=== PATIENT | male | born 1985 | race Caucasian/White ===

== ENCOUNTER 2017-03-23 11:15 | Emergency (ER) | payer MEDICARE, OTHER ==
[~2017-03-23 11:15] MED LIST: BUPR-86 PO; LITH600C PO; PALI234P IM; PROP20TA3 PO; ROZE8TAB19 PO
[2017-03-23 11:18] VITALS: BP 145/77; PULSE 83; RESP 12; TEMP 98.2; O2SAT 97
--- NOTE | 2017-03-23 12:40 | RADRPT ---
EXAM DATE/TIME: 03/23/2017 12:17 [place] COMPARISON: No previous studies available for comparison. INDICATIONS : Trauma FINDINGS: Three view exam was performed of the left ankle. The bony structures are in normal alignment. No ev idence of fracture, dislocation, or soft tissue swelling. The ankle mortise is intact. No radiopaqu e foreign bodies are seen. Bony mineralization is normal. CONCLUSION: 1. No acute fracture or dislocation. Josh Hebert MD on March 23, 2017 at 12:37 Board Certified Radiologist. This report was verified electronically.
[2017-03-23] MEDS ORDERED: IBUP1TAB7 PO (12:48)
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
[2017-03-23] MEDS ORDERED: IBUPROFEN 800 MG TAB PO ONE (13:00)
== END 2017-03-23 13:24 | disposition home or self-care (01) ==
LOC: NEPK 11:15
DX: S99.912A Unspecified injury of left ankle, initial encounter (principal); X50.1XXA Overexertion from prolonged static or awkward postures, initial encounter; Y93.39 Activity, other involving climbing, rappelling and jumping off
CPT/HCPCS: 73610; 99283; E0113; L1906

== ENCOUNTER 2017-08-16 11:52 | Emergency (ER) | payer MEDICARE, MEDICAID ==
[~2017-08-16] VITALS: Ht 165.1 cm; Wt 110.0 kg
[~2017-08-16 11:52] MED LIST changes: +IBUP1TAB7 PO
[2017-08-16 11:59] VITALS: BP 141/76; PULSE 91; RESP 16; TEMP 98; O2SAT 98
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
[2017-08-16] MEDS ORDERED: TRAZ100T10 PO (12:47)
== END 2017-08-16 13:10 | disposition home or self-care (01) ==
LOC: NEPD 11:52
DX: F51.05 Insomnia due to other mental disorder (principal); F41.9 Anxiety disorder, unspecified; F20.9 Schizophrenia, unspecified; F31.9 Bipolar disorder, unspecified
CPT/HCPCS: 99281

== ENCOUNTER 2017-09-14 18:11 | Inpatient (IN) | payer OTHER, MEDICARE ==
[~2017-09-14] VITALS: Ht 165.1 cm; Wt 109.2 kg
[~2017-09-14 18:11] MED LIST changes: +TRAZ100T10 PO
[2017-09-14 18:15] VITALS: BP 156/79; PULSE 105; RESP 20; TEMP 98.5; O2SAT 99
[2017-09-14] MEDS ORDERED: PALI1TAB4 PO (18:34)
[2017-09-14] MEDS ORDERED: DOXE100C4 PO (18:34)
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
[2017-09-14 20:51] VITALS: BP 139/81; PULSE 90; RESP 18; TEMP 98.5; O2SAT 100
[2017-09-14 21:15] LABS: BICARBONATE 19.7 MEQ/L (21.0-32.0); BLOOD UREA NITROGEN 11 MG/DL (7-18); CALCIUM 9.1 MG/DL (8.5-10.1); CHLORIDE 107 MEQ/L (98-107); CREATININE 0.97 MG/DL (0.60-1.30); GLOMERULAR FILTRATION RATE 91 ML/MIN (>89); GLUCOSE,RANDOM 77 MG/DL (74-106); SODIUM (NA) 137 MEQ/L (136-145)
[2017-09-14 21:57] LABS: AUTOMATED NEUTROPHIL # 9.9 TH/MM3 (1.8-7.7); BASOPHIL # 0.1 TH/MM3 (0-0.2); BASOPHIL % 0.4 % (0.0-2.0); EOSINOPHIL # 0.1 TH/MM3 (0-0.4); EOSINOPHIL % 0.5 % (0.0-4.0); HEMATOCRIT 40.4 % (39.0-51.0); HEMOGLOBIN 13.6 GM/DL (13.0-17.0); LYMPH % 19.8 % (9.0-44.0); LYMPHOCYTE # 2.7 TH/MM3 (1.0-4.8); MEAN CELL VOLUME 84.4 FL (80.0-100.0); MEAN CORPUSCULAR HEMOGLOBIN 28.4 PG (27.0-34.0); MEAN CORPUSCULAR HGB CONC 33.7 % (32.0-36.0); MONO % 5.8 % (0.0-8.0); MONOCYTE # 0.8 TH/MM3 (0-0.9); NEUT % 73.5 % (16.0-70.0); PLATELET COUNT 293 TH/MM3 (150-450); RED BLOOD COUNT 4.79 MIL/MM3 (4.50-5.90); RED CELL DISTRIBUTION WIDTH 13.5 % (11.6-17.2); WHITE BLOOD COUNT 13.5 TH/MM3 (4.0-11.0)
[2017-09-15 00:29] VITALS: BP 169/83; PULSE 98; RESP 18; TEMP 98.6; O2SAT 100
[2017-09-15] MEDS ORDERED: diphenhydrAMINE HCL 50 MG/ML VIAL IM ONE (06:45)
[2017-09-15] MEDS ORDERED: HALOPERIDOL LACTATE 5 MG/ML AMP IM ONE ×2 (06:45→18:15)
[2017-09-15] MEDS ORDERED: LORazepam 2 MG/ML VIAL IM ONE ×2 (06:45→18:15)
[2017-09-15] MEDS ORDERED: ALUMINUM/MAGNESIUM/SIMETH 30 ML CUP PO PRN (07:15)
[2017-09-15] MEDS ORDERED: ACETAMINOPHEN 325 MG TAB PO PRN (07:15)
[2017-09-15] MEDS ORDERED: LORazepam 0.5 MG TAB PO PRN (07:15)
[2017-09-15] MEDS ORDERED: LORazepam 1 MG TAB PO PRN (07:15)
[2017-09-15] MEDS ORDERED: LORazepam 2 MG/ML VIAL IM PRN ×2 (07:15)
[2017-09-15] MEDS ORDERED: MAGNESIUM HYDROXIDE SUSP 30 ML CUP PO PRN (07:15)
[2017-09-15] MEDS: LITHIUM CARBONATE 300 MG CAP PO SCH ×2 (09:00→21:00)
[2017-09-15] MEDS ORDERED: PALIPERIDONE ER 9 MG TAB PO SCH (09:00)
[2017-09-15] MEDS: PROPRANOLOL HCL 20 MG TAB PO SCH ×2 (09:00→21:18)
[2017-09-15] MEDS ORDERED: NICOTINE 21 MG/24 HR PATCH T-DERMAL SCH (09:00)
[2017-09-15 13:22] VITALS: BP 132/73; PULSE 98; RESP 18; TEMP 97.6; O2SAT 98
[2017-09-15] MEDS ORDERED: HALOPERIDOL LACTATE 5 MG/ML AMP ONE (18:07)
[2017-09-15] MEDS ORDERED: DOXEPIN HCL 50 MG CAP PO SCH (21:00)
[2017-09-15] MEDS ORDERED: traZODone HCL 100 MG TAB PO SCH (21:00)
[2017-09-15] MEDS ORDERED: HALOPERIDOL 5 MG TAB PO ONE (23:45)
[2017-09-15] MEDS ORDERED: diphenhydrAMINE HCL 50 MG CAP PO ONE (23:45)
[2017-09-15] MEDS ORDERED: LORazepam 2 MG TAB PO ONE (23:45)
[2017-09-16 06:16] VITALS: BP 124/74; PULSE 83; RESP 18; TEMP 97.4; O2SAT 100
[2017-09-16 08:45] LABS: BLOOD UREA NITROGEN 9 MG/DL (7-18); CALCIUM 9.1 MG/DL (8.5-10.1); CHLORIDE 105 MEQ/L (98-107); CHOLESTEROL 171 MG/DL (120-200); CREATININE 1.01 MG/DL (0.60-1.30); GLOMERULAR FILTRATION RATE 87 ML/MIN (>89); GLUCOSE,RANDOM 108 MG/DL (74-106); SODIUM (NA) 138 MEQ/L (136-145)
[2017-09-16 08:47] LABS: HDL CHOLESTEROL 25.5 MG/DL (40.0-60.0); LDL CHOLESTEROL 126 MG/DL (0-99); TRIGLYCERIDES 97 MG/DL (42-150)
[2017-09-16] MEDS ORDERED: PALIPERIDONE ER 3 MG TAB PO SCH (09:00)
[2017-09-16] MEDS: PROPRANOLOL HCL 20 MG TAB PO SCH ×2 (09:00→21:19)
[2017-09-16] MEDS: LITHIUM CARBONATE 300 MG CAP PO SCH ×2 (09:00→21:18)
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
[2017-09-16 10:39] LABS: HEMOGLOBIN A1C 4.6 % (4.3-6.0)
[2017-09-16] MEDS ORDERED: BENZTROPINE MESYLATE 2 MG/2 ML VIAL IM PRN (12:15)
[2017-09-16] MEDS ORDERED: BENZTROPINE MESYLATE 1 MG TAB PO PRN (12:15)
[2017-09-16 15:10] VITALS: BP 125/60; PULSE 79; RESP 18; TEMP 98.7; O2SAT 98
[2017-09-16] MEDS: traZODone HCL 100 MG TAB PO PRN (19:54)
--- NOTE | 2017-09-16 20:17 | EKG ---
Date Performed: 09/16/2017 Time Performed: 12:58:14 PTAGE: 32 years EKG: Sinus rhythm NORMAL ECG NO PREVIOUS TRACING DOCTOR: Amauri Bolton Interpretating Date/Time 09/16/2017 20:16:07
[2017-09-16] MEDS: DOCUSATE SODIUM 100 MG CAP PO SCH (21:17)
[2017-09-16] MEDS: PALIPERIDONE ER 3 MG TAB PO SCH (21:19)
[2017-09-17] MEDS: hydrOXYzine HCL 50 MG TAB PO PRN (01:01)
[2017-09-17 05:55] VITALS: BP 127/64; PULSE 72; RESP 18; TEMP 97.7; O2SAT 98
[2017-09-17 06:10] VITALS: BP 127/64; PULSE 72; RESP 18; TEMP 97.7; O2SAT 98
[2017-09-17] MEDS: PROPRANOLOL HCL 20 MG TAB PO SCH ×2 (08:00→20:29)
[2017-09-17] MEDS: DOCUSATE SODIUM 100 MG CAP PO SCH ×2 (08:00→20:26)
[2017-09-17] MEDS: LITHIUM CARBONATE 300 MG CAP PO SCH ×2 (08:01→20:27)
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
[2017-09-17] MEDS: BISACODYL EC 5 MG TABEC PO PRN (12:16)
--- NOTE | 2017-09-17 12:26 | HHI.PYPN ---
Subjective Chief Complaint: Psychosis Remarks Patient seen and examined with nurse. Chart reviewed. Case discussed with nursing staff. Patient noted to have slept 4 hours. Case discussed in treatment team. Occupational therapist notes patient was carrying around the cover of a bible and told therapist that he thought it was covered in blood. On my evaluation, patient remains quite childlike and interpersonally odd. He approaches me initially during fresh air time to ask about discharge. When I ask him about this during the interview, he tells me that he needs to attend a convention but then says that this is scheduled for next month. He makes odd statements about not "put[ting] the right lock on the door." He denies SI or HI. Denies AVH. Denies side effects from medications. No physical complaints. Review of Systems ROS Limitations: Poor Historian Except as stated in HPI: all other systems reviewed are Neg Mental Status Examination Appearance: Appropriate Consciousness: Alert Orientation: x4 Motor Activity: Normal gait, Other (No motor abnormalities noted) Speech: Unremarkable Language: Adequate Fund of Knowledge: Adequate (Fair) Attention and Concentration: Other (Fair) Mood: Other ("Pretty good") Affect: Appropriate (Remain somewhat childlike) Thought Process & Associations: Intact, Logical Thought Content: Bizarre thinking, Hallucinations Hallucination Type: None Delusion Type: None Suicidal Ideation: No Suicidal Plan: No Suicidal Intention: No Homicidal Ideation: No Homicidal Plan: No Homicidal Intention: No Insight: Fair Judgment: Impulsive Results Labs Labs reviewed. EKG reviewed. Vitals/IOs Vital Signs Date Time Temp Pulse Resp B/P (MAP) Pulse Ox O2 Delivery O2 Flow Rate FiO2 09/17/17 06:10 97.7 72 18 127/64 (85) 98 09/15/17 00:29 Room Air Assessment & Plan Problem List: (1) Other schizoaffective disorders ICD Codes: F25.8 - Other schizoaffective disorders Assessment & Plan I continue to wonder about some degree of intellectual disability or developmental disorder. Continue increased dose of Invega as ordered. Continue lithium as ordered and plan to obtain a level later in the week. Continue to monitor on the inpatient unit. Continue other medications and care as ordered. Justification for Cont. Inpt. Risk for decompensation in less restrictive environment Discharge Planning Pending psychiatric stabilization Request HC Surrog/Guard Advoc?: No Jono Osborn MD September 17, 2017 12:26
[2017-09-17 18:05] VITALS: BP 128/79; PULSE 86; RESP 18; TEMP 97.5; O2SAT 100
[2017-09-17] MEDS: PALIPERIDONE ER 3 MG TAB PO SCH (20:27)
[2017-09-18 06:09] VITALS: BP 141/67; PULSE 88; RESP 18; TEMP 97.6; O2SAT 97
[2017-09-18] MEDS: PROPRANOLOL HCL 20 MG TAB PO SCH ×2 (08:10→20:10)
[2017-09-18] MEDS: DOCUSATE SODIUM 100 MG CAP PO SCH ×2 (08:10→20:09)
[2017-09-18] MEDS: LITHIUM CARBONATE 300 MG CAP PO SCH ×2 (08:11→20:09)
[2017-09-18] MEDS: BISACODYL EC 5 MG TABEC PO PRN (08:11)
--- NOTE | 2017-09-18 13:34 | HHI.PYPN ---
Subjective Chief Complaint: Psychosis Remarks Patient seen and examined with counselor and nurse. Chart reviewed. Case discussed with nursing staff who reports the patient is somewhat fixated on his bowels and displayed some irritability yesterday associated with the bathroom. Case discussed in treatment team. On my examination today, the patient denies any SI or HI. He denies any AVH but appears a little internally preoccupied. Some ongoing paranoia. No side effects from medications. No physical complaints. Review of Systems ROS Limitations: Psychotic Except as stated in HPI: all other systems reviewed are Neg Mental Status Examination Appearance: Appropriate Consciousness: Alert Orientation: x4 Motor Activity: Normal gait, Other (No motoric abnormalities noted) Speech: Unremarkable Language: Adequate Fund of Knowledge: Adequate Attention and Concentration: Other (Fair) Mood: Other (Calm) Affect: Appropriate (Somewhat child like) Thought Process & Associations: Intact, Logical Thought Content: Bizarre thinking Hallucination Type: None Delusion Type: Paranoid Suicidal Ideation: No Suicidal Plan: No Suicidal Intention: No Homicidal Ideation: No Homicidal Plan: No Homicidal Intention: No Insight: Fair Judgment: Impulsive Results Labs Labs reviewed Vitals/IOs Vital Signs Date Time Temp Pulse Resp B/P (MAP) Pulse Ox O2 Delivery O2 Flow Rate FiO2 09/18/17 06:09 97.6 88 18 141/67 (91) 97 09/15/17 00:29 Room Air Assessment & Plan Problem List: (1) Other schizoaffective disorders ICD Codes: F25.8 - Other schizoaffective disorders Assessment & Plan Discussed with patient options for management of ongoing psychotic symptoms. After discussion of R/P/A, we settle on addition of Thorazine to existing regimen. Start Thorazine 50 mg at bedtime. Continue other psychotropics as ordered. Obtain a lithium level tomorrow morning. Counselor to obtain collateral information. Continue to monitor on the inpatient unit. Continue other medications and care as ordered. Justification for Cont. Inpt. Med changes. Impairment in reality construction. Risk for decompensation in less restrictive environment. Discharge Planning Pending psychiatric stabilization. Request HC Surrog/Guard Advoc?: No Jono Osborn MD September 18, 2017 13:34
[2017-09-18 17:06] VITALS: BP 144/76; PULSE 89; RESP 18; TEMP 97.3; O2SAT 99
[2017-09-18] MEDS: PALIPERIDONE ER 3 MG TAB PO SCH (20:10)
[2017-09-18] MEDS: traZODone HCL 100 MG TAB PO PRN (21:16)
[2017-09-19 06:05] VITALS: BP 139/73; PULSE 79; RESP 16; TEMP 97.7; O2SAT 99
[2017-09-19 06:55] LABS: BICARBONATE 28.3 MEQ/L (21.0-32.0); CALCIUM 9.7 MG/DL (8.5-10.1); CREATININE 1.07 MG/DL (0.60-1.30)
[2017-09-19] MEDS: PROPRANOLOL HCL 20 MG TAB PO SCH ×2 (08:46→21:12)
[2017-09-19] MEDS: DOCUSATE SODIUM 100 MG CAP PO SCH ×2 (08:46→21:12)
[2017-09-19] MEDS: LITHIUM CARBONATE 300 MG CAP PO SCH ×2 (08:47→21:12)
--- NOTE | 2017-09-19 11:26 | HHI.PYPN ---
Subjective Chief Complaint: Psychosis Remarks Patient seen and examined with nurse. Chart reviewed. Case discussed with nursing staff. On my examination today, the patient presents as fairly appropriate in conversation. Mild episcopalian preoccupation noted. He denies AVH. No preoccupation with bowels or bathroom today. No SI or HI. No side effects from medications. No physical complaints. Agreeable to starting Invega Sustenna and to titration of Thorazine to target residual symptoms. Education provided regarding Sustenna dosing schedule. Review of Systems Except as stated in HPI: all other systems reviewed are Neg Mental Status Examination Appearance: Appropriate Consciousness: Alert Orientation: x4 Motor Activity: Normal gait, Other (No abnormal motor movements noted. No hand tremor, no dystonia, no dyskinesia.) Speech: Unremarkable Language: Adequate Fund of Knowledge: Adequate Attention and Concentration: Adequate Memory: Unremarkable (Grossly intact on clinical exam) Mood: Other (Remains calm) Affect: Appropriate (Somewhat childlike) Thought Process & Associations: Intact, Logical Thought Content: Appropriate Hallucination Type: None Delusion Type: Paranoid (Mild) Suicidal Ideation: No Suicidal Plan: No Suicidal Intention: No Homicidal Ideation: No Homicidal Plan: No Homicidal Intention: No Insight: Fair Judgment: Impulsive Results Labs Test 09/19/17 05:58 Blood Urea Nitrogen 7 MG/DL Creatinine 1.07 MG/DL Random Glucose 100 MG/DL Calcium Level 9.7 MG/DL Sodium Level 142 MEQ/L Potassium Level 3.7 MEQ/L Chloride Level 106 MEQ/L Carbon Dioxide Level 28.3 MEQ/L Anion Gap 8 MEQ/L Estimat Glomerular Filtration Rate 81 ML/MIN Kenvir Level 0.7 MEQ/L Labs reviewed. Kenvir level within therapeutic range for maintenance treatment , and patient is not experiencing significant affective symptoms presently. Vitals/IOs Vital Signs Date Time Temp Pulse Resp B/P (MAP) Pulse Ox O2 Delivery O2 Flow Rate FiO2 09/19/17 06:05 97.7 79 16 139/73 (95) 99 Assessment & Plan Problem List: (1) Other schizoaffective disorders ICD Codes: F25.8 - Other schizoaffective disorders Assessment & Plan Titrate Thorazine to 100 mg at bedtime. Initiate Invega Sustenna 234 mg IM today with plan for booster dose in 4-7 days. Plan for fairly rapid discontinuation of oral Invega as oral supplementation is not required with this agent. Continue to monitor on the inpatient unit. Continue other medications and care as ordered. Justification for Cont. Inpt. Med changes. Discharge Planning Possible discharge tomorrow or perhaps Saturday. Request HC Surrog/Guard Advoc?: No Jono Osborn MD September 19, 2017 11:26
[2017-09-19] MEDS ORDERED: PALIPERIDONE PALMITATE 234 MG/1.5 ML SYRINGE IM ONE (11:30)
[2017-09-19 18:00] VITALS: BP 127/58; PULSE 69; RESP 18; TEMP 98.3; O2SAT 97
[2017-09-19] MEDS: PALIPERIDONE ER 3 MG TAB PO SCH (21:14)
[2017-09-20 05:54] VITALS: BP 105/63; PULSE 73; RESP 16; TEMP 96.7; O2SAT 97
[2017-09-20] MEDS: PROPRANOLOL HCL 20 MG TAB PO SCH (09:04)
[2017-09-20] MEDS: LITHIUM CARBONATE 300 MG CAP PO SCH ×2 (09:04→20:38)
[2017-09-20] MEDS: DOCUSATE SODIUM 100 MG CAP PO SCH ×2 (09:04→20:38)
--- NOTE | 2017-09-20 16:12 | HHI.PYPN ---
Subjective Chief Complaint: Psychosis Remarks Patient seen and examined. Chart reviewed. Patient received Invega Sustenna yesterday and is tolerating this well without ill effects. Case discussed with nursing staff. Case discussed with counselor who has been in contact with patient's mother who thinks that the patient is improving but would benefit from additional stabilization on the inpatient unit. On my exam the patient is agreeable to remaining through the weekend. He denies any SI or HI. He denies any AVH. Some ongoing paranoia with associated anxiety. No side effects from medications. No physical complaints. Review of Systems Except as stated in HPI: all other systems reviewed are Neg Mental Status Examination Appearance: Appropriate Consciousness: Alert Orientation: x4 Motor Activity: Normal gait, Other (No motor abnormalities noted) Speech: Unremarkable Language: Adequate Fund of Knowledge: Adequate Attention and Concentration: Adequate Memory: Unremarkable (Grossly intact on clinical exam) Mood: Anxious (Mild) Affect: Anxious Thought Process & Associations: Intact Thought Content: Appropriate Hallucination Type: None Delusion Type: Paranoid (Decreasing) Suicidal Ideation: No Suicidal Plan: No Suicidal Intention: No Homicidal Ideation: No Homicidal Plan: No Homicidal Intention: No Insight: Fair Judgment: Impulsive Results Labs Labs reviewed Vitals/IOs Vital Signs Date Time Temp Pulse Resp B/P (MAP) Pulse Ox O2 Delivery O2 Flow Rate FiO2 09/20/17 05:54 96.7 73 16 105/63 (77) 97 Assessment & Plan Problem List: (1) Other schizoaffective disorders ICD Codes: F25.8 - Other schizoaffective disorders Assessment & Plan Continue oral Invega until patient receives booster dose after the weekend. Plan to discontinue thereafter. Continue Thorazine as ordered. Continue lithium as ordered. Continue other medications and care as ordered. Justification for Cont. Inpt. Risk for decompensation in less restrictive environment. Discharge Planning Anticipate discharge beginning of next week. Request HC Surrog/Guard Advoc?: No Jono Osborn MD September 20, 2017 16:12
[2017-09-20 16:41] VITALS: BP 129/63; PULSE 78; RESP 17; TEMP 98.2; O2SAT 98
[2017-09-20] MEDS: PALIPERIDONE ER 3 MG TAB PO SCH (21:00)
[2017-09-21 06:21] VITALS: BP 117/66; PULSE 90; RESP 17; TEMP 97.2; O2SAT 97
[2017-09-21] MEDS: LITHIUM CARBONATE 300 MG CAP PO SCH ×2 (09:00→21:07)
[2017-09-21] MEDS: DOCUSATE SODIUM 100 MG CAP PO SCH ×2 (09:00→21:07)
[2017-09-21] MEDS: PROPRANOLOL HCL 10 MG TAB PO SCH ×2 (09:00→21:07)
--- NOTE | 2017-09-21 15:15 | HHI.PYPN ---
Subjective Chief Complaint: Psychosis Remarks Patient was seen and case discussed with nursing. Patient is defensive and irritable during the interview. He is short with his answers. He has had 2 episodes of urinary incontinence and he is interested in a UA. Insight is quite poor concerning his mental health. He denies psychotic symptoms what could be responding to internal stimuli Mental Status Examination Appearance: Appropriate Consciousness: Alert Orientation: x4 Motor Activity: Normal gait, Other (No motor abnormalities noted) Speech: Unremarkable Language: Adequate Fund of Knowledge: Adequate Attention and Concentration: Adequate Memory: Unremarkable (Grossly intact on clinical exam) Mood: Anxious (Mild) Affect: Other (Oppositional) Thought Process & Associations: Intact Thought Content: Appropriate Hallucination Type: None Delusion Type: Paranoid (Decreasing) Suicidal Ideation: No Suicidal Plan: No Suicidal Intention: No Homicidal Ideation: No Homicidal Plan: No Homicidal Intention: No Insight: Fair Judgment: Impulsive Results Vitals/IOs Vital Signs Date Time Temp Pulse Resp B/P (MAP) Pulse Ox O2 Delivery O2 Flow Rate FiO2 09/21/17 06:21 97.2 90 17 117/66 (83) 97 Assessment & Plan Problem List: (1) Other schizoaffective disorders ICD Codes: F25.8 - Other schizoaffective disorders Assessment & Plan Order UA Justification for Cont. Inpt. Patient would decompensate in a less restrictive setting Request HC Surrog/Guard Advoc?: No Terrence Richey DO September 21, 2017 15:14
[2017-09-21 16:05] LABS: BILIRUBIN, URINE NEG (NEG); BLOOD, URINE NEG (NEG); GLUCOSE,URINE NEG (NEG); KETONE, URINE NEG (NEG); NITRITE,URINE NEG (NEG); PH, URINE 7.5 (5.0-8.5); URINE COLOR COLORLESS (YELLW/STRAW); URINE LEUKOCYTE ESTERASE NEG (NEG)
[2017-09-21 18:15] VITALS: BP 128/82; PULSE 93; RESP 18; TEMP 97.6; O2SAT 99
[2017-09-21] MEDS: PALIPERIDONE ER 6 MG TAB PO SCH (21:06)
[2017-09-21] MEDS: traZODone HCL 100 MG TAB PO PRN (23:10)
[2017-09-22 06:41] VITALS: BP 114/74; PULSE 63; RESP 16; TEMP 97.8; O2SAT 98
[2017-09-22] MEDS: DOCUSATE SODIUM 100 MG CAP PO SCH ×2 (08:36→21:14)
[2017-09-22] MEDS: LITHIUM CARBONATE 300 MG CAP PO SCH ×2 (08:36→21:14)
[2017-09-22] MEDS: PROPRANOLOL HCL 10 MG TAB PO SCH ×2 (08:36→21:13)
--- NOTE | 2017-09-22 14:05 | HHI.PYPN ---
Subjective Chief Complaint: Psychosis Remarks Patient was seen and case discussed with nursing. Patient was irritable this morning but he has since apologized and his manners have improved. His UA was negative. Continues to have incontinence at night. Describes his mood today is "pretty good." Patient says is dark thoughts and paranoia have resolved. He looks forward to going back to work. Mental Status Examination Appearance: Appropriate Consciousness: Alert Orientation: x4 Motor Activity: Normal gait, Other (No motor abnormalities noted) Speech: Unremarkable Language: Adequate Fund of Knowledge: Adequate Attention and Concentration: Adequate Memory: Unremarkable (Grossly intact on clinical exam) Mood: Anxious (Mild) Affect: Other Thought Process & Associations: Intact Thought Content: Appropriate Hallucination Type: None Delusion Type: Paranoid (Decreasing) Suicidal Ideation: No Suicidal Plan: No Suicidal Intention: No Homicidal Ideation: No Homicidal Plan: No Homicidal Intention: No Insight: Fair Judgment: Impulsive Results Labs Test 09/21/17 15:30 Urine Color COLORLESS Urine Turbidity CLEAR Urine pH 7.5 Urine Specific [place] 1.001 Urine Protein NEG mg/dL Urine Glucose (UA) NEG mg/dL Urine Ketones NEG mg/dL Urine Occult Blood NEG Urine Nitrite NEG Urine Bilirubin NEG Urine Urobilinogen LESS THAN 2.0 MG/DL Urine Leukocyte Esterase NEG Urine WBC 1 /hpf Microscopic Urinalysis Comment CULT NOT INDICATED Vitals/IOs Vital Signs Date Time Temp Pulse Resp B/P (MAP) Pulse Ox O2 Delivery O2 Flow Rate FiO2 09/22/17 06:41 97.8 63 16 114/74 (87) 98 Assessment & Plan Problem List: (1) Other schizoaffective disorders ICD Codes: F25.8 - Other schizoaffective disorders Assessment & Plan Continue current treatment plan Justification for Cont. Inpt. Patient would decompensate in a less restrictive setting Request HC Surrog/Guard Advoc?: No Terrence Richey DO September 22, 2017 14:05
[2017-09-22 17:10] VITALS: BP 122/63; PULSE 88; RESP 16; TEMP 97.2; O2SAT 98
[2017-09-22] MEDS: hydrOXYzine HCL 50 MG TAB PO PRN (18:31)
[2017-09-22] MEDS: traZODone HCL 100 MG TAB PO PRN (21:13)
[2017-09-22] MEDS: PALIPERIDONE ER 6 MG TAB PO SCH (21:14)
[2017-09-23 07:10] VITALS: BP 132/60; PULSE 78; RESP 16; TEMP 97.3; O2SAT 100
[2017-09-23] MEDS: LITHIUM CARBONATE 300 MG CAP PO SCH (08:25)
[2017-09-23] MEDS: DOCUSATE SODIUM 100 MG CAP PO SCH (08:25)
[2017-09-23] MEDS: PROPRANOLOL HCL 10 MG TAB PO SCH (08:26)
[2017-09-23] MEDS ORDERED: PALIPERIDONE PALMITATE 156 MG/ML SYRINGE IM ONE (10:15)
[2017-09-23] MEDS ORDERED: PALI156P IM (10:16)
[2017-09-23] MEDS ORDERED: HYDR50TA94 PO (10:16)
[2017-09-23] MEDS ORDERED: Chlorpromazine PO (10:16)
[2017-09-23] MEDS ORDERED: DOCU1CAP39 PO (10:16)
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
[2017-09-23] MEDS: hydrOXYzine HCL 50 MG TAB PO PRN (12:58)
== END 2017-09-23 13:05 | disposition home or self-care (01) | DRG 885 ==
LOC: NEPJ 18:11 → NEDA 09-15 07:04 → H270 09-15 12:55
PROVIDERS: ADMIT Psychiatry & Neurology Psychiatry; ATTEND Psychiatry & Neurology Psychiatry
DX: F25.8 Other schizoaffective disorders (principal); F31.9 Bipolar disorder, unspecified; F41.9 Anxiety disorder, unspecified; R32 Unspecified urinary incontinence; Z81.8 Family history of other mental and behavioral disorders
CPT/HCPCS: 80048; 80061; 80178; 80307; 81001; 83036; 84443; 85025; 93005; 96372; 99285; J1200; J1630; J2060; J2426; Q0163

== ENCOUNTER 2017-10-17 16:25 | Emergency (ER) | payer MEDICARE, MEDICAID ==
[~2017-10-17] VITALS: Ht 165.1 cm; Wt 113.5 kg
[~2017-10-17 16:25] MED LIST changes: -BUPR-86 PO; +Chlorpromazine PO; +DOCU1CAP39 PO; +HYDR50TA94 PO; -IBUP1TAB7 PO; +PALI156P IM; -PALI234P IM; -ROZE8TAB19 PO
[2017-10-17 16:40] VITALS: BP 148/82; PULSE 100; RESP 18; TEMP 98.9; O2SAT 99
--- NOTE | 2017-10-17 18:12 | PD ---
HPI Chief Complaint: Medical Clearance Time Seen by Provider: 18:02 Travel History International Travel<30 days: No Contact w/Intl Traveler<30days: No Traveled to known affect area: No History of Present Illness HPI 32-year-old male presents to the emergency department requesting medication refills on trazodone and Thorazine because he has not been able to sleep for 2 days, after running out of his medication 2 days ago. He does have medication refills and he can pick him up on Saturday. He denies suicidal or homicidal ideations. Denies auditory or visual hallucinations. Denies illicit drug use or alcohol use. Has not taken any medications or try treatments to alleviate his symptoms. No known aggravating or relieving factors. Symptoms are mild in severity. Primary care provider is Dr. Rothman Allergies to Barbara. History of hypertension, insomnia, schizoaffective disorder. Has no other medical complaints. No other modifying factors or associated signs and symptoms. History Past Medical Histgory Hx Cancer: No Social History Alcohol Use: No Tobacco Use: No Allergies-Medications (Allergen,Severity, Reaction): Coded Allergies: aripiprazole (Verified Allergy, Intermediate, Twitching, 09/14/17) zolpidem (Verified Adverse Reaction, Mild, 09/14/17) Reported Meds & Prescriptions Reported Meds & Active Scripts Active Invega Sustenna Inj (Paliperidone Palmitate) 156 Mg/Ml Inj 156 Mg IM Q28D This dose of Invega Sustenna is due on 10/21/2017. Dok (Docusate Sodium) 100 Mg Cap 100 Mg PO BID 15 Days Hydroxyzine HCl 50 Mg Tab 50 Mg PO Q6H PRN [Chlorpromazine] 100 MG Tab 100 Mg PO HS 15 Days Trazodone (Trazodone HCl) 100 Mg Tablet 100 Mg PO HS [place] Carbonate 600 Mg Cap 600 Mg PO BID Reported Propranolol (Propranolol HCl) 20 Mg Tab 20 Mg PO BID Review of Systems Except as stated in HPI: all other systems reviewed are Neg Physical Exam Narrative GENERAL: Well-nourished, well-developed male patient, in no acute distress SKIN: Warm and dry. HEAD: Atraumatic. Normocephalic. EYES: Pupils equal and round. ENT: Mucosa pink and moist. NECK: Supple. Trachea midline. CARDIOVASCULAR: Regular rate and rhythm. No murmur appreciated. RESPIRATORY: No accessory muscle use. Clear to auscultation. Breath sounds equal bilaterally. GASTROINTESTINAL: Abdomen soft, non-tender, nondistended. Hepatic and splenic margins not palpable. Bowel sounds are active 4 quadrants. MUSCULOSKELETAL: No obvious deformities. No clubbing. No cyanosis. No edema. NEUROLOGICAL: Awake and alert. Oriented 3. No obvious cranial nerve deficits. Motor grossly within normal limits. Normal speech. Moves all extremities. 5/5 strength to all extremities. PSYCHIATRIC: No delusional thought processes. No hallucinations. Data Data Last Documented VS Vital Signs Date Time Temp Pulse Resp B/P (MAP) Pulse Ox O2 Delivery O2 Flow Rate FiO2 10/17/17 16:40 98.9 100 18 148/82 (104) 99 MDM Medical Screen Exam Complete: Yes Emergency Medical Condition: No Differential Diagnosis Medication refill, insomnia Narrative Course 32-year-old male presents for medication refill on Thorazine and trazodone for his insomnia. He ran out of medications 2 days ago. 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 He denies suicidal or homicidal ideations. Vital signs are stable and the patient is stable for outpatient follow-up and treatment. The patient has no urgent or emergent medical complaints. There is no emergent or urgent medical need at this time. I instructed the patient to follow up with their primary care provider. A medical screening exam was performed: At the time of evaluation the presenting medical condition was determined not to be of an emergent nature. The patient was given the option of receiving additional care, but declined. Patient was given options for additional community resources from which to obtain care. The Patient Has Been advised to seek medical attention for their presenting complaint. The patient has been advised to return to the ER at any time if an emergent condition develops. Primary Impression: Encounter for medical screening examination Condition: Stable Kelley Crump October 17, 2017 18:12
== END 2017-10-17 18:29 | disposition left against medical advice (07) ==
LOC: NEPD 16:25
DX: G47.00 Insomnia, unspecified (principal); I10 Essential (primary) hypertension; F25.9 Schizoaffective disorder, unspecified; Z88.8 Allergy status to other drugs, medicaments and biological substances; Z79.899 Other long term (current) drug therapy
CPT/HCPCS: 99281

== ENCOUNTER 2017-10-21 17:18 | Emergency (ER) | payer MEDICARE, MEDICAID ==
[~2017-10-21] VITALS: Ht 165.1 cm; Wt 114.0 kg
[2017-10-21 18:49] VITALS: BP 136/84; PULSE 84; RESP 18; TEMP 98.7; O2SAT 100
--- NOTE | 2017-10-21 19:48 | PD ---
HPI Chief Complaint: Medication Refill Request Time Seen by Provider: 19:00 Travel History International Travel<30 days: No Contact w/Intl Traveler<30days: No Traveled to known affect area: No History of Present Illness HPI 32-year-old male presents to the emergency room requesting medication refills of Xanax, Seroquel, and trazodone. States he has been out of these medications for 6 days. States he needs them to sleep. Patient reports he has not slept in a few days. Patient initially just requested trazodone but when the nurse went in the room he asked for Xanax and Seroquel. He was recently admitted for his schizophrenia and Xanax is not on his med reconciliation. He reportedly has an appointment with his psychiatrist on November 02. He was also just here 4 days ago requesting prescription for trazodone and told the provider at that time that he would be able to get the prescription filled today. He is slightly guarded and hostile during history and physical exam. Patient denies any suicidal or homicidal ideations at this time. History Past Medical Histgory Tetanus Vaccination: > 5 Years Hx Cancer: No Past Surgical History Surgical History: No Previous Surgery Social History Alcohol Use: Yes (hasn't had a drink in 4 days) Tobacco Use: No (quit four year ago) Allergies-Medications (Allergen,Severity, Reaction): Coded Allergies: aripiprazole (Verified Allergy, Intermediate, Twitching, 10/21/17) zolpidem (Verified Adverse Reaction, Mild, 10/21/17) Reported Meds & Prescriptions Reported Meds & Active Scripts Active Invega Sustenna Inj (Paliperidone Palmitate) 156 Mg/Ml Inj 156 Mg IM Q28D This dose of Invega Sustenna is due on 10/21/2017. Dok (Docusate Sodium) 100 Mg Cap 100 Mg PO BID 15 Days Hydroxyzine HCl 50 Mg Tab 50 Mg PO Q6H PRN [Chlorpromazine] 100 MG Tab 100 Mg PO HS 15 Days Trazodone (Trazodone HCl) 100 Mg Tablet 100 Mg PO HS [place] Carbonate 600 Mg Cap 600 Mg PO BID Reported Propranolol (Propranolol HCl) 20 Mg Tab 20 Mg PO BID Review of Systems Except as stated in HPI: all other systems reviewed are Neg Physical Exam Narrative GENERAL: Well-nourished, well-developed male in no acute distress. Afebrile. Ambulatory. SKIN: Focused skin assessment warm/dry. HEAD: Normocephalic. EYES: No scleral icterus. No injection or drainage. NECK: Supple, trachea midline. No JVD or lymphadenopathy. CARDIOVASCULAR: Regular rate and rhythm without murmurs, gallops, or rubs. RESPIRATORY: Breath sounds equal bilaterally. No accessory muscle use. PSYCHIATRIC: No delusional thought processes. No hallucinations. Flat affect. Normal mood. Data Data Last Documented VS Vital Signs Date Time Temp Pulse Resp B/P (MAP) Pulse Ox O2 Delivery O2 Flow Rate FiO2 10/21/17 18:49 98.7 84 18 136/84 (101) 100 MDM Medical Screen Exam Complete: Yes Emergency Medical Condition: No Differential Diagnosis Schizoaffective disorder, drug-seeking behavior Narrative Course 32-year-old male with history of bipolar and schizoaffective disorders presents to the emergency room requesting Xanax, Seroquel, and trazodone. States he has been out for 6 days and is having trouble sleeping. He provided a very similar story to the last time he was here 4 days ago at which time he was screened. He denies any suicidal or homicidal ideations at this time. No physical complaints. Physical exam unremarkable. Vital signs stable. He has a flat affect. He became hostile after he was told he would not be receiving any of those prescriptions today. He was offered high-dose Vistaril to help with sleeping but stated it does not work. He reportedly has an appointment with his psychiatrist in 8 days. There are no urgent or emergent medical conditions at this time. A medical screening exam was performed: At the time of evaluation the presenting medical condition was determined not to be of an emergent nature. The patient was given the option of receiving additional care, but declined. Patient was given options for additional community resources from which to obtain care. The Patient Has Been advised to seek medical attention for their presenting complaint. The patient has been advised to return to the ER at any time if an emergent condition develops. Primary Impression: Encounter for medical screening examination Disposition: 01 DISCHARGE HOME Condition: Stable Rosanne Isbell Oct 21, 2017 19:48
== END 2017-10-21 20:02 | disposition left against medical advice (07) ==
LOC: NEPK 17:18
DX: F20.9 Schizophrenia, unspecified (principal)
CPT/HCPCS: 99281

== ENCOUNTER 2017-10-22 14:31 | Inpatient (IN) | payer OTHER, MEDICARE ==
[~2017-10-22] VITALS: Ht 165.1 cm; Wt 110.2 kg
[2017-10-22 14:33] VITALS: BP 148/87; PULSE 80; RESP 18; TEMP 98.3; O2SAT 98
[2017-10-22 15:34] LABS: AUTOMATED NEUTROPHIL # 7.1 TH/MM3 (1.8-7.7); BASOPHIL # 0.1 TH/MM3 (0-0.2); BASOPHIL % 0.9 % (0.0-2.0); EOSINOPHIL # 0.2 TH/MM3 (0-0.4); EOSINOPHIL % 1.6 % (0.0-4.0); HEMATOCRIT 40.6 % (39.0-51.0); HEMOGLOBIN 13.6 GM/DL (13.0-17.0); LYMPH % 27.5 % (9.0-44.0); LYMPHOCYTE # 3.2 TH/MM3 (1.0-4.8); MEAN CELL VOLUME 84.2 FL (80.0-100.0); MEAN CORPUSCULAR HEMOGLOBIN 28.2 PG (27.0-34.0); MEAN CORPUSCULAR HGB CONC 33.5 % (32.0-36.0); MEAN PLATELET VOLUME 8.3 FL (7.0-11.0); MONO % 8.9 % (0.0-8.0); NEUT % 61.1 % (16.0-70.0); PLATELET COUNT 319 TH/MM3 (150-450); RED BLOOD COUNT 4.82 MIL/MM3 (4.50-5.90); RED CELL DISTRIBUTION WIDTH 13.6 % (11.6-17.2); WHITE BLOOD COUNT 11.7 TH/MM3 (4.0-11.0)
[2017-10-22 15:40] LABS: BILIRUBIN, URINE NEG (NEG); BLOOD, URINE NEG (NEG); GLUCOSE,URINE NEG (NEG); KETONE, URINE NEG (NEG); MUCUS URINE FEW /lpf (OCC); NITRITE,URINE NEG (NEG); URINE COLOR YELLOW (YELLW/STRAW); URINE LEUKOCYTE ESTERASE NEG (NEG)
[2017-10-22 15:51] LABS: ALBUMIN 4.3 GM/DL (3.4-5.0); AST (GOT) 52 U/L (15-37); BICARBONATE 24.2 MEQ/L (21.0-32.0); BLOOD UREA NITROGEN 9 MG/DL (7-18); CALCIUM 9.8 MG/DL (8.5-10.1); CHLORIDE 106 MEQ/L (98-107); GLOMERULAR FILTRATION RATE 88 ML/MIN (>89); GLUCOSE,RANDOM 88 MG/DL (74-106); SODIUM (NA) 139 MEQ/L (136-145)
[2017-10-22 15:52] LABS: ALT (GPT) 55 U/L (12-78)
[2017-10-22 15:55] LABS: ALKALINE PHOSPHATASE 66 U/L (45-117); TOTAL BILIRUBIN ADULT 0.8 MG/DL (0.2-1.0); TOTAL PROTEIN 7.7 GM/DL (6.4-8.2)
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
[2017-10-22 19:17] VITALS: BP 156/83; PULSE 83; RESP 16
[2017-10-23] MEDS ORDERED: traZODone HCL 100 MG TAB PO ONE (00:30)
[2017-10-23 02:00] VITALS: BP 148/81; PULSE 89; RESP 16
[2017-10-23 07:30] VITALS: BP 134/70; PULSE 75; RESP 16; O2SAT 99
[2017-10-23] MEDS ORDERED: hydrOXYzine HCL 50 MG TAB PO PRN (08:30)
[2017-10-23] MEDS ORDERED: LORazepam 0.5 MG TAB PO PRN (08:30)
[2017-10-23] MEDS ORDERED: MAGNESIUM HYDROXIDE SUSP 30 ML CUP PO PRN (08:30)
[2017-10-23] MEDS ORDERED: LORazepam 2 MG/ML VIAL IM PRN ×2 (08:30)
[2017-10-23] MEDS ORDERED: ALUMINUM/MAGNESIUM/SIMETH 30 ML CUP PO PRN (08:30)
[2017-10-23] MEDS ORDERED: NICOTINE 21 MG/24 HR PATCH T-DERMAL SCH (09:00)
[2017-10-23] MEDS ORDERED: PALIPERIDONE ER 9 MG TAB PO SCH (09:00)
[2017-10-23] MEDS: PALIPERIDONE ER 3 MG TAB PO SCH (09:30)
[2017-10-23] MEDS: LITHIUM CARBONATE 300 MG CAP PO SCH ×2 (09:30→20:27)
[2017-10-23 10:01] VITALS: BP 175/90; PULSE 83; RESP 18; TEMP 98.6; O2SAT 100
[2017-10-23 10:46] VITALS: BP 176/90; PULSE 83; RESP 18; TEMP 98.1; O2SAT 100
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
[2017-10-23 17:09] VITALS: BP 132/77; PULSE 85; RESP 18; TEMP 98.3; O2SAT 99
[2017-10-23] MEDS: traZODone HCL 100 MG TAB PO SCH (20:27)
[2017-10-23] MEDS: ACETAMINOPHEN 325 MG TAB PO PRN (20:28)
[2017-10-23] MEDS: LORazepam 1 MG TAB PO PRN (22:24)
[2017-10-24 05:40] VITALS: BP 127/76; PULSE 93; RESP 16; TEMP 98; O2SAT 98
[2017-10-24 08:14] LABS: BICARBONATE 22.1 MEQ/L (21.0-32.0); BLOOD UREA NITROGEN 10 MG/DL (7-18); CALCIUM 9.3 MG/DL (8.5-10.1); CHLORIDE 109 MEQ/L (98-107); CREATININE 0.84 MG/DL (0.60-1.30); GLOMERULAR FILTRATION RATE 107 ML/MIN (>89); GLUCOSE,RANDOM 94 MG/DL (74-106); SODIUM (NA) 144 MEQ/L (136-145)
[2017-10-24 08:15] LABS: CHOLESTEROL 203 MG/DL (120-200); TRIGLYCERIDES 140 MG/DL (42-150)
[2017-10-24 08:18] LABS: CHOLESTEROL/ HDL RATIO 7.09 RATIO; HDL CHOLESTEROL 28.6 MG/DL (40.0-60.0); LDL CHOLESTEROL 146 MG/DL (0-99)
[2017-10-24] MEDS: PALIPERIDONE ER 3 MG TAB PO SCH (08:22)
[2017-10-24] MEDS: LITHIUM CARBONATE 300 MG CAP PO SCH ×2 (08:22→21:07)
[2017-10-24] MEDS ORDERED: INFLUENZA VIRUS VACCINE (QUADRIVALENT) 0.5 ML SYR IM ONE (10:00)
[2017-10-24] MEDS ORDERED: hydrOXYzine HCL 50 MG TAB PO PRN (13:45)
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
[2017-10-24] MEDS ORDERED: PALIPERIDONE PALMITATE 156 MG/ML SYRINGE IM SCH (15:00)
[2017-10-24 16:00] VITALS: BP 143/74; PULSE 90; RESP 17; TEMP 97.7; O2SAT 97
[2017-10-24] MEDS: ACETAMINOPHEN 325 MG TAB PO PRN (17:08)
[2017-10-24 17:17] LABS: HEMOGLOBIN A1C 5.1 % (4.3-6.0)
[2017-10-24] MEDS: traZODone HCL 100 MG TAB PO SCH (21:07)
[2017-10-24] MEDS: diphenhydrAMINE HCL 50 MG CAP PO PRN (23:43)
[2017-10-25 06:02] VITALS: BP 121/64; PULSE 94; RESP 16; TEMP 97.8; O2SAT 97
[2017-10-25] MEDS: PALIPERIDONE ER 3 MG TAB PO SCH (08:40)
[2017-10-25] MEDS: LITHIUM CARBONATE 300 MG CAP PO SCH ×2 (08:41→20:48)
--- NOTE | 2017-10-25 12:23 | HHI.PYPN ---
Subjective Remarks Seen in his room with nurse Estrella, chart reviewed, patient complaint medications. Patient is sitting calmly in his room on his bed somewhat vigilant and apprehensive. States he slept better last night. The voices persist. He is somewhat vague about suicidality today but able contract to do no harm. For now continue treatment Review of Systems Except as stated in HPI: all other systems reviewed are Neg Mental Status Examination Appearance: Appropriate Consciousness: Alert Orientation: x4 Motor Activity: Normal gait Speech: Unremarkable Language: Adequate Fund of Knowledge: Adequate Attention and Concentration: Adequate Memory: Unremarkable Mood: Appropriate Affect: Appropriate Thought Process & Associations: Intact Thought Content: Appropriate Hallucination Type: None Delusion Type: None Suicidal Ideation: No Suicidal Plan: No Suicidal Intention: No Homicidal Ideation: No Homicidal Plan: No Homicidal Intention: No Insight: Adequate Judgment: Adequate Results Vitals/IOs Vital Signs Date Time Temp Pulse Resp B/P (MAP) Pulse Ox O2 Delivery O2 Flow Rate FiO2 10/25/17 06:02 97.8 94 16 121/64 (83) 97 10/23/17 07:30 Room Air 10/22/17 19:17 98 Assessment & Plan Problem List: (1) Schizoaffective disorder ICD Codes: F25.9 - Schizoaffective disorder, unspecified Status: Acute Assessment & Plan Estimated LOS: days patient continues psychotic with vague intermittent suicidal ideation and voices. Compliant medications. For now continue treatment Justification for Cont. Inpt. At this time patient would decompensate a place to the lower level of care Discharge Planning Probable return home Request HC Surrog/Guard Advoc?: No Problem Qualifiers (1) Schizoaffective disorder: Qualified Codes: F25.0 - Schizoaffective disorder, bipolar type Onel Lisa MD Oct 25, 2017 12:23
[2017-10-25 18:02] VITALS: BP 153/81; PULSE 90; RESP 17; TEMP 98.1; O2SAT 98
[2017-10-26 06:47] VITALS: BP 137/80; PULSE 87; RESP 18; TEMP 97.4; O2SAT 100
[2017-10-26] MEDS: LITHIUM CARBONATE 300 MG CAP PO SCH ×2 (09:17→21:03)
[2017-10-26] MEDS: PALIPERIDONE ER 3 MG TAB PO SCH (09:17)
--- NOTE | 2017-10-26 17:37 | HHI.PYPN ---
Subjective Remarks Pt seen and discussed with staff. He received invega ERWIN yesterday and denies side effects. Pt was agitated this afternoon and spit on floor aggressively. He expresses paranoid ideation and states that "things are going on". He c/o feeling stressed out and has been staying in room. He denies medication side effects. "I hope they work soon". Mental Status Examination Appearance: Appropriate Consciousness: Alert Orientation: x4 Motor Activity: Normal gait Speech: Unremarkable Language: Adequate Fund of Knowledge: Adequate Attention and Concentration: Adequate Memory: Unremarkable Mood: Angry, Anxious Affect: Anxious Thought Process & Associations: Linear Thought Content: Delusional Hallucination Type: None Delusion Type: Paranoid Suicidal Ideation: No Suicidal Plan: No Suicidal Intention: No Homicidal Ideation: No Homicidal Plan: No Homicidal Intention: No Insight: Adequate Judgment: Adequate Results Vitals/IOs Vital Signs Date Time Temp Pulse Resp B/P (MAP) Pulse Ox O2 Delivery O2 Flow Rate FiO2 10/26/17 06:47 97.4 87 18 137/80 (99) 100 10/23/17 07:30 Room Air 10/22/17 19:17 98 Assessment & Plan Problem List: (1) Schizoaffective disorder ICD Codes: F25.9 - Schizoaffective disorder, unspecified Status: Acute Assessment & Plan Continue current medications. . Explored transfer to 2700 unit but no bed available and current 2700 pts acuity level is higher. Pt has calmed now. Will utilize anxiety medication as needed to reduce agitation. Continue hospitalization. Estimated LOS: days Justification for Cont. Inpt. agitation Request HC Surrog/Guard Advoc?: No Problem Qualifiers (1) Schizoaffective disorder: Qualified Codes: F25.0 - Schizoaffective disorder, bipolar type Liz Mehta MD Oct 26, 2017 17:37
[2017-10-26 17:57] VITALS: BP 180/86; PULSE 97; RESP 17; TEMP 98.3; O2SAT 100
[2017-10-26 21:00] VITALS: BP 142/82; PULSE 82
[2017-10-26] MEDS: traZODone HCL 100 MG TAB PO SCH (21:00)
[2017-10-26] MEDS: LORazepam 1 MG TAB PO PRN (21:05)
[2017-10-27 05:43] VITALS: BP 126/67; PULSE 82; RESP 18; TEMP 98.3; O2SAT 99
[2017-10-27] MEDS: PALIPERIDONE ER 3 MG TAB PO SCH (09:08)
[2017-10-27] MEDS: LITHIUM CARBONATE 300 MG CAP PO SCH ×2 (09:08→21:47)
[2017-10-27] MEDS: LORazepam 1 MG TAB PO PRN (09:18)
--- NOTE | 2017-10-27 12:44 | HHI.PYPN ---
Subjective Remarks Pt seen and discussed with staff. He remains paranoid and has required redirection on unit. He believes that the city is out to get him because of his sins. He is responding to internal stimuli and became more anxious on unit. He stated that people could look at his eye and see that he had done certain things. In group, RN reports that he made statements about HI and SI. He states that he feels overwhelmed on the unit because and doesn't know what to do. " they think I'm cazares. They say it. They look at my face and read things." PT was transferred to 2700 unit to private room for closer observation and more structured unit for safety. Mental Status Examination Appearance: Appropriate Consciousness: Alert Orientation: x4 Motor Activity: Normal gait Speech: Unremarkable Language: Adequate Fund of Knowledge: Adequate Attention and Concentration: Adequate Memory: Unremarkable Mood: Angry, Anxious Affect: Anxious Thought Process & Associations: Linear Thought Content: Delusional Hallucination Type: None Delusion Type: Paranoid Suicidal Ideation: Yes (unreliable to contract for safety) Suicidal Intention: No Homicidal Ideation: No (denies but unreliable to contract for safety) Insight: Adequate Judgment: Adequate Results Vitals/IOs Vital Signs Date Time Temp Pulse Resp B/P (MAP) Pulse Ox O2 Delivery O2 Flow Rate FiO2 10/27/17 05:43 98.3 82 18 126/67 (86) 99 10/23/17 07:30 Room Air Assessment & Plan Problem List: (1) Schizoaffective disorder ICD Codes: F25.9 - Schizoaffective disorder, unspecified Status: Acute Assessment & Plan Continue current tx plan. Transferred to 2700 unit. Estimated LOS: days Justification for Cont. Inpt. impairments in reality testing and safety Request HC Surrog/Guard Advoc?: No Problem Qualifiers (1) Schizoaffective disorder: Qualified Codes: F25.0 - Schizoaffective disorder, bipolar type Liz Mehta MD Oct 27, 2017 12:44
[2017-10-27 17:51] VITALS: BP 148/89; PULSE 110; RESP 18; TEMP 98.4; O2SAT 98
[2017-10-27] MEDS: traZODone HCL 100 MG TAB PO SCH (21:45)
[2017-10-28 06:42] VITALS: BP 140/79; PULSE 95; RESP 18; TEMP 98.1; O2SAT 98
[2017-10-28] MEDS: PALIPERIDONE ER 3 MG TAB PO SCH (09:16)
[2017-10-28] MEDS: LITHIUM CARBONATE 300 MG CAP PO SCH (09:16)
--- NOTE | 2017-10-28 09:56 | PD.TTN ---
Patient Problems 1. Discharge planning 2. Medication compliance 3. Knowledge deficit 4. Lack of coping skills Progress Toward Goals Provider Present: Dr. Leilani Lisa Provider Input: Pt is in need of further stabilzation, titrating meds Psychiatric Counselors Present: Geronimo Lake Jr., [facility] Psych Therapist Input: Pt is new to this counselor, transfer from 26[address] Geronimo Lake Jr, [facility] [place], [place] Oct 28, 2017 09:56
[2017-10-28] MEDS: LORazepam 1 MG TAB PO PRN (14:46)
--- NOTE | 2017-10-28 17:24 | HHI.PYPN ---
Subjective Remarks Patient is seen in his room with nurse Anabelle and medical student Pat chart review, patient compliant medications. Patient calm and quiet quiet spoken however he is stating he is having more urges to hurt people and becomes violent his changes feeling like a heat or energy inside him. There is showing good judgment by sharing this with us by asking for a timeout. He denies voices in his head though I feel there may be some internal stimuli. I will discontinue his lithium start patient on Tegretol 100 mg twice daily. We will increase at bedtime Thorazine to 200 mg since patient states she is not sleeping well. We will add Thorazine 100 mg 9 AM 100 mg 4 PM to the regimen also Review of Systems Except as stated in HPI: all other systems reviewed are Neg Mental Status Examination Appearance: Appropriate Consciousness: Alert Orientation: x4 Motor Activity: Normal gait Speech: Unremarkable Language: Adequate Fund of Knowledge: Adequate Attention and Concentration: Adequate Memory: Unremarkable Mood: Angry, Anxious Affect: Anxious Thought Process & Associations: Linear Thought Content: Delusional Hallucination Type: None Delusion Type: Paranoid Suicidal Ideation: Yes (unreliable to contract for safety) Suicidal Intention: No Homicidal Ideation: No (denies but unreliable to contract for safety) Insight: Adequate Judgment: Adequate Results Vitals/IOs Vital Signs Date Time Temp Pulse Resp B/P (MAP) Pulse Ox O2 Delivery O2 Flow Rate FiO2 10/28/17 06:42 98.1 95 18 140/79 (99) 98 Assessment & Plan Problem List: (1) Schizoaffective disorder ICD Codes: F25.9 - Schizoaffective disorder, unspecified Status: Acute Assessment & Plan Estimated LOS: days patient stating he is having increased thoughts of wanting to hurt himself and hurt other people and destroy things. She medication adjustment above Justification for Cont. Inpt. At this time patient would decompensate a place to the lower level of care Discharge Planning To be determined Request HC Surrog/Guard Advoc?: No Problem Qualifiers (1) Schizoaffective disorder: Qualified Codes: F25.0 - Schizoaffective disorder, bipolar type Onel Lisa MD Oct 28, 2017 17:24
[2017-10-28] MEDS: traZODone HCL 100 MG TAB PO SCH (21:02)
[2017-10-29 06:27] VITALS: BP 120/58; PULSE 93; RESP 18; TEMP 97.6; O2SAT 96
[2017-10-29] MEDS: PALIPERIDONE ER 3 MG TAB PO SCH (08:37)
--- NOTE | 2017-10-29 15:21 | HHI.PYPN ---
Subjective Remarks Patient seen in the nguyen with nurse in general and medical student Pat, chart reviewed, patient compliant medication. Patient somewhat calmer more focused with better eye contact is somewhat more appropriate affect. Says he slept well last night. Says his anger still present but is softening. He is showing no signs of side effects from the medication. For now continue treatment Review of Systems Except as stated in HPI: all other systems reviewed are Neg Mental Status Examination Appearance: Appropriate Consciousness: Alert Orientation: x4 Motor Activity: Normal gait Speech: Unremarkable Language: Adequate Fund of Knowledge: Adequate Attention and Concentration: Adequate Memory: Unremarkable Mood: Angry, Anxious Affect: Anxious Thought Process & Associations: Linear Thought Content: Delusional Hallucination Type: None Delusion Type: Paranoid Suicidal Ideation: Yes (unreliable to contract for safety) Suicidal Intention: No Homicidal Ideation: No (denies but unreliable to contract for safety) Insight: Adequate Judgment: Adequate Results Vitals/IOs Vital Signs Date Time Temp Pulse Resp B/P (MAP) Pulse Ox O2 Delivery O2 Flow Rate FiO2 10/29/17 06:27 97.6 93 18 120/58 (78) 96 Assessment & Plan Problem List: (1) Schizoaffective disorder ICD Codes: F25.9 - Schizoaffective disorder, unspecified Status: Acute Assessment & Plan Estimated LOS: days patient's psychosis is softening his behaviors are improving, states she slept better. For now continue treatment no change Justification for Cont. Inpt. At this time patient would decompensate a place to the lower level of care Discharge Planning Placement to be determined Request HC Surrog/Guard Advoc?: No Problem Qualifiers (1) Schizoaffective disorder: Qualified Codes: F25.0 - Schizoaffective disorder, bipolar type nOel Lisa MD Oct 29, 2017 15:21
[2017-10-29] MEDS: LORazepam 1 MG TAB PO PRN (16:03)
[2017-10-29 17:00] VITALS: BP 151/83; PULSE 113; RESP 18; TEMP 98.2; O2SAT 95
[2017-10-29] MEDS: traZODone HCL 100 MG TAB PO SCH (20:19)
[2017-10-30 05:42] VITALS: BP 132/81; PULSE 80; RESP 18; TEMP 97.6; O2SAT 96
[2017-10-30] MEDS: PALIPERIDONE ER 3 MG TAB PO SCH (08:29)
--- NOTE | 2017-10-30 15:29 | HHI.PYPN ---
Subjective Remarks Patient is seen in day room with nurse less, chart reviewed, patient complaint medications. Patient states his anger is getting better, he is less irritable, but he says his mind is wandering somewhat. He states he wants to be discharged via the 20th because he wants to go the [employer] intervention Review of Systems Except as stated in HPI: all other systems reviewed are Neg Mental Status Examination Appearance: Appropriate Consciousness: Alert Orientation: x4 Motor Activity: Normal gait Speech: Unremarkable Language: Adequate Fund of Knowledge: Adequate Attention and Concentration: Adequate Memory: Unremarkable Mood: Angry, Anxious Affect: Anxious Thought Process & Associations: Linear Thought Content: Delusional Hallucination Type: None Delusion Type: Paranoid Suicidal Ideation: Yes (unreliable to contract for safety) Suicidal Intention: No Homicidal Ideation: No (denies but unreliable to contract for safety) Insight: Adequate Judgment: Adequate Results Vitals/IOs Vital Signs Date Time Temp Pulse Resp B/P (MAP) Pulse Ox O2 Delivery O2 Flow Rate FiO2 10/30/17 05:42 97.6 80 18 132/81 (98) 96 Assessment & Plan Problem List: (1) Schizoaffective disorder ICD Codes: F25.9 - Schizoaffective disorder, unspecified Status: Acute Assessment & Plan Estimated LOS: days patient's psychosis is slowly resolving is showing some good self-control at this time, compliant medication. For now continue treatment we will be checking Justification for Cont. Inpt. At this time patient would decompensate a place to a lower level of care Discharge Planning To be determined Request HC Surrog/Guard Advoc?: No Problem Qualifiers (1) Schizoaffective disorder: Qualified Codes: F25.0 - Schizoaffective disorder, bipolar type Onel Lisa MD Oct 30, 2017 15:29
[2017-10-30 16:07] VITALS: BP 138/64; PULSE 100; RESP 18; TEMP 98.3; O2SAT 98
[2017-10-30] MEDS: LORazepam 1 MG TAB PO PRN (19:13)
[2017-10-30] MEDS: traZODone HCL 100 MG TAB PO SCH (20:35)
[2017-10-31 06:11] VITALS: BP 134/73; PULSE 90; RESP 16; TEMP 97.9; O2SAT 96
[2017-10-31] MEDS: PALIPERIDONE ER 3 MG TAB PO SCH (08:11)
--- NOTE | 2017-10-31 17:25 | HHI.PYPN ---
Subjective Remarks Patient is seen in his room with nurse delia, and medical student Pat chart reviewed, patient compliant medication. Tegretol level drawn this a.m. was 4.5 and 100 mg twice daily we will increase dose to 200 mg twice daily check blood level on Saturday 11/04 patient states the voices are diminished he still feels attention and today some anxiety focused towards his mother. But overall he showed no behavioral problems has been compliant with his medication Review of Systems Except as stated in HPI: all other systems reviewed are Neg Mental Status Examination Appearance: Appropriate Consciousness: Alert Orientation: x4 Motor Activity: Normal gait Speech: Unremarkable Language: Adequate Fund of Knowledge: Adequate Attention and Concentration: Adequate Memory: Unremarkable Mood: Angry, Anxious Affect: Anxious Thought Process & Associations: Linear Thought Content: Delusional Hallucination Type: None Delusion Type: Paranoid Suicidal Ideation: Yes (unreliable to contract for safety) Suicidal Intention: No Homicidal Ideation: No (denies but unreliable to contract for safety) Insight: Adequate Judgment: Adequate Results Labs Test 10/31/17 06:47 Carbamazepine (Tegretol) Level 4.5 MCG/ML Vitals/IOs Vital Signs Date Time Temp Pulse Resp B/P (MAP) Pulse Ox O2 Delivery O2 Flow Rate FiO2 10/31/17 06:11 97.9 90 16 134/73 (93) 96 Assessment & Plan Problem List: (1) Schizoaffective disorder ICD Codes: F25.9 - Schizoaffective disorder, unspecified Status: Acute Assessment & Plan Estimated LOS: days patient continues psychotic with vague auditory hallucinations but softening his affect is improving also she medication adjustment above Justification for Cont. Inpt. At this time patient would decompensate a place to a lower level of care Discharge Planning To be determined Request HC Surrog/Guard Advoc?: No Problem Qualifiers (1) Schizoaffective disorder: Qualified Codes: F25.0 - Schizoaffective disorder, bipolar type Onel Lisa MD Oct 31, 2017 17:25
[2017-10-31 17:44] VITALS: BP 135/62; PULSE 101; RESP 18; TEMP 98.1; O2SAT 98
[2017-10-31] MEDS: traZODone HCL 100 MG TAB PO SCH (20:49)
[2017-10-31] MEDS: diphenhydrAMINE HCL 50 MG CAP PO PRN (20:49)
[2017-11-01 06:20] VITALS: BP 138/70; PULSE 82; RESP 18; TEMP 98.2; O2SAT 97
[2017-11-01 06:25] VITALS: BP 90/54; PULSE 16; RESP 16; TEMP 97.4; O2SAT 98
[2017-11-01] MEDS: PALIPERIDONE ER 3 MG TAB PO SCH (08:53)
--- NOTE | 2017-11-01 16:41 | HHI.PYPN ---
Subjective Remarks Reviewed electronic medical record discussed case with staff. Follow-up was conducted in patient's room with tech present. When asked how is feeling today the patient responded, "jealous". However he was unable to elaborate on why he would be jealous. He denies suicidal ideation, homicidal ideation, auditory or visual hallucinations. Reports that he sleeps soundly". He states that his appetite has been up and down mostly due to the fact that "I do not like to eat around people". He denies any side effects from medications. No complaints today. Mental Status Examination Appearance: Appropriate Consciousness: Alert Orientation: x4 Motor Activity: Normal gait Speech: Unremarkable Language: Adequate Fund of Knowledge: Adequate Attention and Concentration: Adequate Memory: Unremarkable Mood: Angry, Anxious Affect: Anxious Thought Process & Associations: Linear Thought Content: Delusional Hallucination Type: None Delusion Type: Paranoid Suicidal Ideation: Yes (unreliable to contract for safety) Suicidal Intention: No Homicidal Ideation: No (denies but unreliable to contract for safety) Insight: Adequate Judgment: Adequate Results Vitals/IOs Vital Signs Date Time Temp Pulse Resp B/P (MAP) Pulse Ox O2 Delivery O2 Flow Rate FiO2 11/01/17 06:25 97.4 16 16 90/54 (66) 98 Assessment & Plan Problem List: (1) Schizoaffective disorder ICD Codes: F25.9 - Schizoaffective disorder, unspecified Status: Acute Assessment & Plan Estimated LOS: Continue with current treatment plan. days Justification for Cont. Inpt. Patient is patient to a lower level of care would result in decompensation. Request HC Surrog/Guard Advoc?: No Problem Qualifiers (1) Schizoaffective disorder: Qualified Codes: F25.0 - Schizoaffective disorder, bipolar type Elis Mayes Nov 01, 2017 16:41
[2017-11-01] MEDS: LORazepam 1 MG TAB PO PRN (17:31)
[2017-11-01 18:08] VITALS: BP 150/84; PULSE 95; RESP 17; TEMP 98.6; O2SAT 99
[2017-11-01] MEDS: traZODone HCL 100 MG TAB PO SCH (20:40)
[2017-11-02 06:33] VITALS: BP 125/74; PULSE 113; RESP 17; TEMP 98.4; O2SAT 96
[2017-11-02] MEDS: PALIPERIDONE ER 3 MG TAB PO SCH (09:24)
--- NOTE | 2017-11-02 14:12 | HHI.PYPN ---
Subjective Remarks Patient was seen and case discussed with nursing. Patient is friendly and cooperative with exam. He is behaving well on the unit. Supportive therapy conducted and psychoeducation done. Is compliant with his medications. Future goals include getting . Eating and sleeping well Mental Status Examination Appearance: Appropriate Consciousness: Alert Orientation: x4 Motor Activity: Normal gait Speech: Unremarkable Language: Adequate Fund of Knowledge: Adequate Attention and Concentration: Adequate Memory: Unremarkable Mood: Appropriate, Anxious Affect: Anxious Thought Process & Associations: Linear Thought Content: Depersonalization Hallucination Type: None Delusion Type: None Suicidal Ideation: No Suicidal Intention: No Homicidal Ideation: No (denies but unreliable to contract for safety) Insight: Adequate Judgment: Adequate Results Vitals/IOs Vital Signs Date Time Temp Pulse Resp B/P (MAP) Pulse Ox O2 Delivery O2 Flow Rate FiO2 11/02/17 06:33 98.4 113 17 125/74 (91) 96 Assessment & Plan Problem List: (1) Schizoaffective disorder ICD Codes: F25.9 - Schizoaffective disorder, unspecified Status: Acute Assessment & Plan Continue current treatment plan Justification for Cont. Inpt. Patient would decompensate in a less restrictive setting Request HC Surrog/Guard Advoc?: No Problem Qualifiers (1) Schizoaffective disorder: Qualified Codes: F25.0 - Schizoaffective disorder, bipolar type Terrence Richey DO Nov 02, 2017 14:12
[2017-11-02] MEDS: traZODone HCL 100 MG TAB PO SCH (20:36)
[2017-11-03 06:15] VITALS: BP 154/86; PULSE 90; RESP 17; TEMP 98.7; O2SAT 95
[2017-11-03 08:00] VITALS: BP 119/57
[2017-11-03] MEDS: PALIPERIDONE ER 3 MG TAB PO SCH (08:23)
--- NOTE | 2017-11-03 11:30 | HHI.PYPN ---
Subjective Remarks Patient was seen and case discussed with nursing. Patient has been behaving well on the unit. Playing basketball, social with others. Affect though remains flat. Nursing notes some bizarre somatic delusions. Compliant with medications Mental Status Examination Appearance: Appropriate Consciousness: Alert Orientation: x4 Motor Activity: Normal gait Speech: Unremarkable Language: Adequate Fund of Knowledge: Adequate Attention and Concentration: Adequate Memory: Unremarkable Mood: Appropriate, Anxious Affect: Anxious Thought Process & Associations: Linear Thought Content: Delusional Hallucination Type: None Delusion Type: Bizarre (Bizarre somatic) Suicidal Ideation: No Suicidal Plan: No Suicidal Intention: No Homicidal Ideation: No (denies but unreliable to contract for safety) Homicidal Plan: No Insight: Adequate Judgment: Adequate Results Vitals/IOs Vital Signs Date Time Temp Pulse Resp B/P (MAP) Pulse Ox O2 Delivery O2 Flow Rate FiO2 11/03/17 06:15 98.7 90 17 154/86 (108) 95 Assessment & Plan Problem List: (1) Schizoaffective disorder ICD Codes: F25.9 - Schizoaffective disorder, unspecified Status: Acute Assessment & Plan Continue current treatment plan Justification for Cont. Inpt. Patient would decompensate in a less restrictive setting Request HC Surrog/Guard Advoc?: No Problem Qualifiers (1) Schizoaffective disorder: Qualified Codes: F25.0 - Schizoaffective disorder, bipolar type Terrence Richey DO Nov 03, 2017 11:30
[2017-11-03] MEDS: traZODone HCL 100 MG TAB PO SCH (20:19)
[2017-11-04] MEDS: LORazepam 1 MG TAB PO PRN (05:36)
[2017-11-04 06:19] VITALS: BP 137/80; PULSE 97; RESP 18; TEMP 97.7; O2SAT 97
[2017-11-04] MEDS: PALIPERIDONE ER 3 MG TAB PO SCH (08:21)
--- NOTE | 2017-11-04 11:48 | HHI.PYPN ---
Subjective Remarks Patient seen and nguyen with estephania, chart reviewed, patient compliant medications. Patient still is somewhat vigilant and guarded, while he denies voices at times appears to be responding to internal stimuli. However is been no behavioral problem. Will be transferred back to 2600. He continues to complain of some mid insomnia. Will increase at bedtime Thorazine to 300 mg Review of Systems Except as stated in HPI: all other systems reviewed are Neg Mental Status Examination Appearance: Appropriate Consciousness: Alert Orientation: x4 Motor Activity: Normal gait Speech: Unremarkable Language: Adequate Fund of Knowledge: Adequate Attention and Concentration: Adequate Memory: Unremarkable Mood: Appropriate, Anxious Affect: Anxious Thought Process & Associations: Linear Thought Content: Delusional Hallucination Type: None Delusion Type: Bizarre (Bizarre somatic) Suicidal Ideation: No Suicidal Plan: No Suicidal Intention: No Homicidal Ideation: No (denies but unreliable to contract for safety) Homicidal Plan: No Insight: Adequate Judgment: Adequate Results Labs Test 11/04/17 09:15 Carbamazepine (Tegretol) Level 7.7 MCG/ML Vitals/IOs Vital Signs Date Time Temp Pulse Resp B/P (MAP) Pulse Ox O2 Delivery O2 Flow Rate FiO2 11/04/17 06:19 97.7 97 18 137/80 (99) 97 Assessment & Plan Problem List: (1) Schizoaffective disorder ICD Codes: F25.9 - Schizoaffective disorder, unspecified Status: Acute Assessment & Plan Estimated LOS: days patient's psychosis is slowly resolving his behaviors under control at this time she medication adjustments above Justification for Cont. Inpt. At this time patient would decompensate a place to a lower level of care Discharge Planning Possible return to his apartment Request HC Surrog/Guard Advoc?: No Problem Qualifiers (1) Schizoaffective disorder: Qualified Codes: F25.0 - Schizoaffective disorder, bipolar type Onel Lisa MD Nov 04, 2017 11:48
[2017-11-04 18:08] VITALS: BP 152/89; PULSE 88; RESP 16; TEMP 98.7; O2SAT 98
[2017-11-04] MEDS: traZODone HCL 100 MG TAB PO SCH (21:19)
[2017-11-05] MEDS: diphenhydrAMINE HCL 50 MG CAP PO PRN (02:55)
[2017-11-05 05:58] VITALS: BP 102/69; PULSE 78; RESP 16; TEMP 98.4
[2017-11-05] MEDS: PALIPERIDONE ER 3 MG TAB PO SCH (08:44)
[2017-11-05] MEDS ORDERED: TRAZ100T10 PO (13:39)
[2017-11-05] MEDS ORDERED: CARB200T PO (13:39)
[2017-11-05] MEDS ORDERED: PALI156P IM (13:39)
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
== END 2017-11-05 16:58 | disposition home or self-care (01) | DRG 885 ==
LOC: NEPJ 14:31 → NEDA 10-23 08:31 → H260 10-23 09:54 → H270 10-27 14:45 → H260 11-04 10:45
PROVIDERS: ADMIT Psychiatry & Neurology Psychiatry; ATTEND Psychiatry & Neurology Psychiatry
DX: F25.0 Schizoaffective disorder, bipolar type (principal); R45.851 Suicidal ideations; I10 Essential (primary) hypertension; G47.00 Insomnia, unspecified; Z81.8 Family history of other mental and behavioral disorders; Z87.891 Personal history of nicotine dependence; Z88.8 Allergy status to other drugs, medicaments and biological substances
CPT/HCPCS: 80048; 80053; 80061; 80156; 80178; 80307; 81001; 83036; 85025; 90686; 99285; J2426; Q0163; Q2038

== ENCOUNTER 2017-11-30 06:57 | Inpatient (IN) ==
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
[2017-11-30 10:04] LABS: Amphetamine Screen,Urine Neg (Neg); Barbiturate Screen,Urine Neg (Neg); Cannabinoid Screen,Urine Neg (Neg); Cocaine Screen,Urine Neg (Neg)
[2017-11-30 10:15] LABS: Opiate Screen,Urine Neg (Neg)
[2017-11-30 10:20] LABS: Baso # (Auto) 0.1 th/mm3 (0.0-0.2); Baso % (Auto) 0.6 % (0.0-2.0); Eos % (Auto) 0.3 % (0.0-4.0); Hematocrit 45.3 % (39.0-51.0); Lymph # (Auto) 1.9 th/mm3 (1.0-4.8); Lymph % (Auto) 19.7 % (9.0-44.0); Mean Corpuscular Hemoglobin 27.5 pg (27.0-34.0); Mean Corpuscular Volume 83.1 fL (80.0-100.0); Mean Platelet Volume 7.9 fL (7.0-11.0); Mono # (Auto) 0.5 th/mm3 (0.0-0.9); Mono % (Auto) 5.7 % (0.0-8.0); Neut # (Auto) 7.1 th/mm3 (1.8-7.7); Neut % (Auto) 73.7 % (16.0-70.0); Platelet Count 239 th/mm3 (150-450); Red Blood Count 5.45 mil/mm3 (4.50-5.90); Red Cell Distribution Width 13.6 % (11.6-17.2); White Blood Count 9.7 th/mm3 (4.0-11.0)
[2017-11-30 10:51] LABS: Albumin 4.3 g/dL (3.4-5.0); Anion Gap 12 meq/L (5-15); Aspartate Aminotransferase 25 U/L (15-37); Blood Urea Nitrogen 11 mg/dL (7-18); Calcium 9.6 mg/dL (8.5-10.1); Carbon Dioxide 23.7 meq/L (21.0-32.0); Chloride 106 meq/L (98-107); Glomerular Filtration Rate Greater Than 89 mL/min (>89); Glucose,Random 101 mg/dL (74-106); Potassium 3.5 meq/L (3.5-5.1); Sodium 142 meq/L (136-145)
[2017-11-30 10:52] LABS: Alanine Aminotransferase 35 U/L (12-78)
[2017-11-30 11:01] LABS: Alkaline Phosphatase 67 U/L (45-117); Thyroid Stimulating Hormone 0.505 uIU/mL (0.358-3.740)
--- NOTE | 2017-11-30 12:41 | ED ---
HPI - Psych - General Source: patient, RN notes reviewed Mode of arrival: ambulatory - History of Present Illness MD complaint: feels depressed, other (feels that his " mind is in agony" ) Duration: getting worse Relieving factors: none Exacerbating factors: none Associated psychiatric symptoms: depression Associated symptoms: denies other symptoms Treatments prior to arrival: none - General Chief Complaint: Psychiatric Symptoms Stated Complaint: Psych Time Seen by Provider: 11/30/17 08:28 - History of Present Illness HPI Narrative: Patient is a 32-year-old, single, unemployed male who presents to the emergency room because he feels he is in agony and suffering. He endorses increased aggressiveness and anger stating that it is getting a lot worse. He is supported by [facility] and states that he lives in an apartment in [place]. He has a psychiatric history of schizoaffective disorder and has had 5 previous psychiatric hospitalizations in the past. The most recent hospitalization was in August 2017 where he started to decompensate and was inviting unknown people to sleep and eat in his apartment. He is currently talking about multiple drugs and prostitutes which leads this provider to believe that he has created an unsafe environment at his apartment. Patient states that he has been getting inconsistent sleep. In the past he has been on Invega Sustenna, Thorazine 100, lithium 600, and trazodone 100 nightly. He is followed by [facility]. He states that he is currently on Invega Sustenna, Wellbutrin, propranolol, and Seroquel. He cannot recall if he made his last Invega Sustenna injection appointment. He states that he gets restless leg syndrome with Abilify. He has a medical history of hypertension. He states no surgeries. His mother lives in [place]. Her name is Mckayla Oropeza and her number is [phone]. I have attempted to call her but was unable to reach her. He states that his father is as of 2002. He states that he has not been working but he thinks he has a job at [employer] and is supposed to start this coming Saturday. UDS is negative. He denies substance use, alcohol and smoking. Chart reviewed and discussed with nursing staff. Patient is in room J103 of the emergency department. He is in a [facility] and patient is overweight. He is alert to self and place but could not tell me date time or the president. He is childlike in nature. Insight and judgment is fair. Motor and gait is normal. Recent recall is normal remote memory is impaired. Speech is normal for rate tone and rhythm. Affect is sad and mood is depressed. Thought processes are illogical and tangential. Attention and concentration is mildly impaired. Patient is unable to demonstrate abstract thinking. He endorses no suicidal or homicidal ideations. Patient states that he feels like his mind is" agony." He does not confirm auditory or visual hallucinations but he is internally stimulated. Patient appears to be experiencing some paranoia. Patient is at moderate risk for decompensation. Will place him under a Garzon act for further assessment and treatment. Patient cannot recall when his last injection of the Invega Sustenna was administered. He does receive his medications from Georgi Ivan. Dx: Schizoaffective (Julieta Villeda) - Related Data Home Medications Medication Instructions Recorded Confirmed Invega Sustenna 200 mg IM 11/30/17 bupropion HCl [Wellbutrin XL] 150 mg PO QAM 11/30/17 11/30/17 propranolol [Inderal LA] 15 mg/kg PO BID 11/30/17 11/30/17 quetiapine [Seroquel] PO HS 11/30/17 Allergies Allergy/AdvReac Type Severity Reaction Status Date / Time aripiprazole Allergy Intermediate Twitching Verified 10/21/17 18:52 zolpidem AdvReac Mild Verified 10/21/17 18:52 Review of Systems All other systems reviewed negative except as stated in HPI [facility] - History History Provided By: Patient - Medical History Medical History: Medical History (Last Updated 11/26/17 @ 14:16 by Monik Schaefer) Patient denies medical problems - Surgical History Surgical History: Surgical History (Last Updated 11/26/17 @ 14:16 by Monik Schaefer) No history of previous surgery - Tobacco History Second Hand Smoke Exposure: Yes Smoking Status: Never smoker - Alcohol History How Often Do You Have a Drink Containing Alcohol: Monthly or less - Substance Use History Substance History: Past History - Travel History Recent Travel in the [facility] Within the Last 8 Weeks: No Recent Travel Out of the Country Within the Last 8 Weeks: No - Immunization History Tetanus Immunization: >5 Years Hx Influenza Vaccine This Season: No Psychiatric History - Psychiatric History Psychiatric Treatment History: History of Psychiatric Treatment - Psychiatric History Patient is followed by Georgi Ivan. He is scheduled to receive long-term injectable,Invega Sustenna. (Julieta Villeda) Physical Exam - General Limitations: no limitations General appearance: alert - Head Head exam: atraumatic - Eye Eye exam: Present: normal appearance - ENT ENT exam: Present: normal exam - Neck Neck exam: Present: normal inspection Mental Status Examination Appearance: Appropriate Consciousness: Alert Orientation: Person Motor Activity: Normal gait Speech: Unremarkable Language: Adequate Fund of Knowledge: Poor Attention and Concentration: Easily distracted Memory: Impaired Mood: Sad Affect: Sad, Flat Thought Process & Associations: Loose associations, Disorganized, Tangential Thought Content: Hallucinations (internally stimulated) Hallucination Type: Auditory Delusion Type: Paranoid Suicidal Ideation: No Suicidal Plan: No Suicidal Intention: No Homicidal Ideation: No Homicidal Plan: No Homicidal Intention: No Insight: Adequate Judgment: Adequate Initial Documented Vital Signs Temperature 98.6 F 11/30/17 07:18 Pulse Rate 87 11/30/17 07:18 Respiratory Rate 16 11/30/17 07:18 Blood Pressure 161/85 H 11/30/17 07:18 Pulse Oximetry 99 11/30/17 07:18 Last Documented Vital Signs Temperature 98.6 F 11/30/17 07:18 Pulse Rate 87 11/30/17 07:18 Respiratory Rate 16 11/30/17 07:18 Blood Pressure 161/85 H 11/30/17 07:18 Pulse Oximetry 99 11/30/17 07:18 MDM - Psych - Diagnosis (1) Schizoaffective disorder Status: Acute - Differential Diagnosis Likely: depression - Medical Records Attestation: I reviewed the patient's medical records. - Lab Data Attestation: I reviewed the patient's lab results. Result diagrams: 11/30/17 10:10 11/30/17 10:10 - [facility] Narrative Medical decision making narrative: Patient is a 32-year-old male who presents to the emergency room voluntarily. He has a long history of schizoaffective disorder. He was recently admitted in August 2017 for decompensation. He is followed by Georgi Ivan and is scheduled to receive long-acting injectable Invega Sustenna. Patient cannot recall if he received his injection. He states that he is also on Seroquel, propanolol, and Wellbutrin. He presents disorganized, tangential, and illogical. He states he lives in an apartment and that drug addicts and prostitutes are invading his space. He states he has received inconsistent sleep. He is vague about auditory or visual hallucinations but appears that he is internally stimulated. I attempted to call his mother but was unable to reach her. Patient is at moderate risk for decompensation. Will place him under a Garzon act so that further assessment and treatment may be rendered. I have discussed this plan with the patient and he is appreciative as he feels his mind is" agony." Decision: ADMIT, initiate Garzon act. (Julieta Villeda) - Lab Data Lab Results 11/30/17 11/30/17 11/30/17 Range/Units 09:15 10:10 10:10 WBC 9.7 (4.0-11.0) th/mm3 RBC 5.45 (4.50-5.90) mil/mm3 Hgb 15.0 (13.0-17.0) gm/dL Hct 45.3 (39.0-51.0) % MCV 83.1 (80.0-100.0) fL MCH 27.5 (27.0-34.0) pg MCHC 33.0 (32.0-36.0) % RDW 13.6 (11.6-17.2) % Plt Count 239 (150-450) th/mm3 MPV 7.9 (7.0-11.0) fL Neut % (Auto) 73.7 H (16.0-70.0) % Lymph % (Auto) 19.7 (9.0-44.0) % [place] % (Auto) 5.7 (0.0-8.0) % Eos % (Auto) 0.3 (0.0-4.0) % Baso % (Auto) 0.6 (0.0-2.0) % Neut # (Auto) 7.1 (1.8-7.7) th/mm3 Lymph # (Auto) 1.9 (1.0-4.8) th/mm3 [place] # (Auto) 0.5 (0.0-0.9) th/mm3 Eos # (Auto) 0.0 (0.0-0.4) th/mm3 Baso # (Auto) 0.1 (0.0-0.2) th/mm3 WBC Differential . Differential Comment Auto diff final Sodium 142 (136-145) meq/L Potassium 3.5 (3.5-5.1) meq/L Chloride 106 (98-107) meq/L Carbon Dioxide 23.7 (21.0-32.0) meq/L Anion Gap 12 (5-15) meq/L BUN 11 (7-18) mg/dL Creatinine 0.93 (0.60-1.30) mg/dL Estimated GFR Greater than 89 (>89) mL/min Random Glucose 101 (74-106) mg/dL Calcium 9.6 (8.5-10.1) mg/dL Total Bilirubin 0.6 (0.2-1.0) mg/dL AST 25 (15-37) U/L ALT 35 (12-78) U/L Alkaline Phosphatase 67 (45-117) U/L Total Protein 8.0 (6.4-8.2) g/dL Albumin 4.3 (3.4-5.0) g/dL TSH 0.505 (0.358-3.740) uIU/mL Urine Opiates Screen Neg (Neg) Ur Barbiturates Screen Neg (Neg) Ur Amphetamines Screen Neg (Neg) U Benzodiazepines Scrn Neg (Neg) Urine Cocaine Screen Neg (Neg) U Cannabinoids Screen Neg (Neg) Serum Alcohol Less than 3 (0-5) mg/dL
[2017-11-30] MEDS ORDERED: Aluminum/Magnesium/Simethacone Susp 30 ML UDC PO PRN (12:42)
[2017-11-30] MEDS: Ibuprofen 600 MG Tablet PO SCH ×2 (15:08→22:03)
[2017-11-30] MEDS ORDERED: Haloperidol Inj 5 MG/ML Ampul ONE (16:09)
[2017-11-30] MEDS ORDERED: Haloperidol Inj 5 MG/ML Ampul IM ONE (17:00)
[2017-11-30] MEDS: Senna/Docusate Sodium 8.6/50 MG Tablet PO SCH (22:03)
[2017-12-01] MEDS: Ibuprofen 600 MG Tablet PO SCH ×2 (08:44→14:22)
[2017-12-01] MEDS: Senna/Docusate Sodium 8.6/50 MG Tablet PO SCH ×2 (08:45→20:41)
[2017-12-01] MEDS ORDERED: Aluminum/Magnesium/Simethacone Susp 30 ML UDC PO PRN (10:02)
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
[2017-12-01] MEDS: Propranolol LA 60 MG Capsule PO SCH ×2 (11:26→20:42)
[2017-12-01] MEDS: QUEtiapine 100 MG Tablet PO SCH ×2 (12:04→21:39)
[2017-12-01] MEDS: buPROPion 150 MG XL 24 HR Tablet PO SCH (14:48)
[2017-12-02] MEDS: Ibuprofen 600 MG Tablet PO SCH ×3 (06:43→17:33)
[2017-12-02] MEDS: Propranolol LA 60 MG Capsule PO SCH ×2 (08:48→20:41)
[2017-12-02] MEDS: Senna/Docusate Sodium 8.6/50 MG Tablet PO SCH ×3 (08:48→20:41)
[2017-12-02] MEDS: QUEtiapine 100 MG Tablet PO SCH (08:49)
[2017-12-02] MEDS: buPROPion 150 MG XL 24 HR Tablet PO SCH (09:02)
--- NOTE | 2017-12-02 10:43 | P.PNPSY ---
Subjective Remarks: Patient seen and examined with nurse. Chart reviewed. Case discussed with nursing staff. No behavioral issues noted overnight. Case discussed with counselor. On my examination today, the patient complains of feeling somewhat depressed and anxious. He requests that his Seroquel and Wellbutrin be titrated to manage these issues. He also complains of feeling somewhat paranoid. He endorses suicidal ideation to cut himself but contracts for safety on the inpatient unit. No homicidal ideation. Denies AVH. 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 Denies side effects from medications. Complains of some mild dyspepsia. No other physical symptoms. Vital Signs Temp Pulse Resp BP Pulse Ox 12/02/17 06:15 98.0 F 72 18 117/67 97 12/01/17 17:59 98.5 F 89 18 199/86 H 100 Intake and Output 12/02/17 12/02/17 12/02/17 06:59 14:59 22:59 Other: Weight 109.9 kg Laboratory Results - last 72 hr 11/30/17 11/30/17 11/30/17 09:15 10:10 10:10 WBC 9.7 RBC 5.45 Hgb 15.0 Hct 45.3 MCV 83.1 MCH 27.5 MCHC 33.0 RDW 13.6 Plt Count 239 MPV 7.9 Neut % (Auto) 73.7 H Lymph % (Auto) 19.7 Boyd % (Auto) 5.7 Eos % (Auto) 0.3 Baso % (Auto) 0.6 Neut # (Auto) 7.1 Lymph # (Auto) 1.9 Boyd # (Auto) 0.5 Eos # (Auto) 0.0 Baso # (Auto) 0.1 WBC Differential . Differential Comment Auto diff final Sodium 142 Potassium 3.5 Chloride 106 Carbon Dioxide 23.7 Anion Gap 12 BUN 11 Creatinine 0.93 Estimated GFR Greater than 89 Random Glucose 101 Calcium 9.6 Total Bilirubin 0.6 AST 25 ALT 35 Alkaline Phosphatase 67 Total Protein 8.0 Albumin 4.3 Triglycerides Cholesterol LDL Cholesterol, Calc HDL Cholesterol Cholesterol/HDL Ratio TSH 0.505 Urine Opiates Screen Neg Ur Barbiturates Screen Neg Ur Amphetamines Screen Neg U Benzodiazepines Scrn Neg Urine Cocaine Screen Neg U Cannabinoids Screen Neg Serum Alcohol Less than 3 12/02/17 11:15 WBC RBC Hgb Hct MCV MCH MCHC RDW Plt Count MPV Neut % (Auto) Lymph % (Auto) Boyd % (Auto) Eos % (Auto) Baso % (Auto) Neut # (Auto) Lymph # (Auto) Boyd # (Auto) Eos # (Auto) Baso # (Auto) WBC Differential Differential Comment Sodium 141 Potassium 4.1 Chloride 108 H Carbon Dioxide 24.9 Anion Gap 8 BUN 10 Creatinine 0.82 Estimated GFR Greater than 89 Random Glucose 92 Calcium 9.4 Total Bilirubin AST ALT Alkaline Phosphatase Total Protein Albumin Triglycerides 187 H Cholesterol 256 H LDL Cholesterol, Calc 190 H HDL Cholesterol 28.8 L Cholesterol/HDL Ratio 8.88 TSH Urine Opiates Screen Ur Barbiturates Screen Ur Amphetamines Screen U Benzodiazepines Scrn Urine Cocaine Screen U Cannabinoids Screen Serum Alcohol Admission labs reviewed. Review of Systems All other systems reviewed negative except as stated in HPI Mental Status Examination Appearance: Appropriate Consciousness: Alert Orientation: Person, Place (At least) Motor Activity: Normal gait, Other (No motor abnormalities noted) Speech: Unremarkable Language: Adequate Fund of Knowledge: Inadequate Attention and Concentration: Other (Fair) Memory: Unremarkable (Grossly intact on clinical exam) Mood: Sad, Anxious Affect: Anxious, Other (Dysphoric) Thought Process & Associations: Circumstantial Thought Content: Delusional Hallucination Type: None Delusion Type: Paranoid Suicidal Ideation: No Suicidal Plan: No Suicidal Intention: No Homicidal Ideation: No Homicidal Plan: No Homicidal Intention: No Insight: Fair (Fair to poor) Judgment: Impulsive Assessment and Plan - Assessment (1) Schizoaffective disorder Code(s): F25.9 - Schizoaffective disorder, unspecified Status: Acute - Plan Plan: Titrate Seroquel to 100/100/200mg for mood stabilization and psychosis. Continue other psychotropics as ordered. I weighmaster lead that patient is capacitated to consent for admission. He was already consenting for medications. Voluntary status. Continue to monitor on high acuity unit. Continue other medications and care as ordered. Justification for Continued Inpatient Stay: Medication changes. Impairment in reality construction. High risk for decompensation in less restrictive environment. Discharge Planning: Possible placement. Case discussed with counselor. Request Healthcare Surrogate/Guardian Advocate?: No (1) Schizoaffective disorder Qualifiers: Schizoaffective disorder type: other Qualified Code(s): F25.8 - Other schizoaffective disorders
[2017-12-02 12:12] LABS: Anion Gap 8 meq/L (5-15); Blood Urea Nitrogen 10 mg/dL (7-18); Calcium 9.4 mg/dL (8.5-10.1); Carbon Dioxide 24.9 meq/L (21.0-32.0); Chloride 108 meq/L (98-107); Cholesterol 256 mg/dL (120-200); Glomerular Filtration Rate Greater Than 89 mL/min (>89); Glucose,Random 92 mg/dL (74-106); Potassium 4.1 meq/L (3.5-5.1); Sodium 141 meq/L (136-145)
[2017-12-02 12:15] LABS: Chol/HDL Ratio 8.88 Ratio; HDL Cholesterol 28.8 mg/dL (40.0-60.0); LDL Cholesterol,Calculated 190 mg/dL (0-99); Triglycerides 187 mg/dL (42-150)
[2017-12-02] MEDS ORDERED: QUEtiapine 100 MG Tablet PO SCH (15:00)
[2017-12-02 16:24] LABS: Hemoglobin A1c 5.3 % (4.3-6.0)
[2017-12-03] MEDS: buPROPion 150 MG XL 24 HR Tablet PO SCH (08:40)
[2017-12-03] MEDS: Propranolol LA 60 MG Capsule PO SCH ×2 (08:41→20:29)
--- NOTE | 2017-12-03 10:50 | P.PNPSY ---
Subjective Remarks: Patient seen and examined with nurse and counselor. Chart reviewed. Case discussed with nursing staff. No behavioral issues noted overnight. Case discussed in treatment team. On my examination today, the patient tells me "right now, I feel good, clean. My problem is feeling negative all the time." He does admit, when asked, to some violent thoughts saying "I do not know what I will do if I get back to into a corner." He cannot say what circumstances would make him feel like he was backed into a corner. He does not describe any thoughts of hurting specific others on the inpatient unit. Denies any audiovisual hallucinations. He says that he likes the Seroquel because it makes him feel more relaxed and likes the Wellbutrin because it makes him feel more positive. Patient says, apropos of nothing, "everyone looks attractive right now on the unit." No reports of sexually inappropriate behavior per nursing staff. I have instructed patient on the need to maintain appropriate boundaries on the inpatient unit. No side effects from medications. No physical complaints for me, although patient does subsequently complain of possible dysuria to nursing staff. Vital Signs Temp Pulse Resp BP Pulse Ox 12/03/17 05:37 97.6 F 73 17 128/68 99 12/02/17 20:42 135/67 Laboratory Results - last 24 hr 12/02/17 11:15 Hemoglobin A1c 5.3 Labs reviewed. Review of Systems All other systems reviewed negative except as stated in HPI (Limitation: Poor historian) Mental Status Examination Appearance: Appropriate Consciousness: Alert Orientation: Person, Place (At least) Motor Activity: Normal gait, Other (No abnormal motor movements appreciated) Speech: Unremarkable Language: Adequate Fund of Knowledge: Inadequate Attention and Concentration: Other (Fair) Memory: Unremarkable (Grossly intact on clinical exam) Mood: Irritable Affect: Blunt (Childlike) Thought Process & Associations: Circumstantial Thought Content: Bizarre thinking Hallucination Type: None Delusion Type: None Suicidal Ideation: No Suicidal Plan: No Suicidal Intention: No Homicidal Ideation: No Homicidal Plan: No Homicidal Intention: No Insight: Fair (Fair to poor) Judgment: Impulsive Assessment and Plan - Assessment (1) Schizoaffective disorder Code(s): F25.9 - Schizoaffective disorder, unspecified Status: Acute - Plan Plan: Titrate Seroquel to 150/150/200mg for mood stabilization. Obtain UA and postvoid residual. Continue to monitor on the high acuity inpatient unit. Continue other medications and care as ordered. Justification for Continued Inpatient Stay: Medication changes. High risk for decompensation in less restrictive environment. Discharge Planning: Pending psychiatric stabilization. Counselor is working with patient and mother towards placement for this patient. Request Healthcare Surrogate/Guardian Advocate?: No (1) Schizoaffective disorder Qualifiers: Schizoaffective disorder type: other Qualified Code(s): F25.8 - Other schizoaffective disorders
[2017-12-03] MEDS: Senna/Docusate Sodium 8.6/50 MG Tablet PO SCH ×2 (15:57→20:36)
[2017-12-03] MEDS: Ibuprofen 600 MG Tablet PO SCH ×2 (16:03→16:04)
[2017-12-03] MEDS: QUEtiapine 100 MG Tablet PO SCH (16:08)
[2017-12-04] MEDS: Senna/Docusate Sodium 8.6/50 MG Tablet PO SCH ×2 (09:16→20:18)
[2017-12-04] MEDS: QUEtiapine 100 MG Tablet PO SCH (09:17)
[2017-12-04] MEDS: buPROPion 150 MG XL 24 HR Tablet PO SCH (09:18)
[2017-12-04] MEDS: Propranolol LA 60 MG Capsule PO SCH ×2 (09:19→20:18)
--- NOTE | 2017-12-04 09:38 | P.PNPSY ---
Subjective Remarks: Patient seen and examined with nurse. Chart reviewed. Case discussed with nursing staff. No behavioral issues noted overnight. On my examination today, the patient presents as somewhat delayed, possibly reflecting some thought blocking. He denies AVH. He tells me "I am having suicidal and violent thoughts." He tells me that he feels like there is "an engine inside me revving up" and once it revs up high enough he will "go berserk." No reported victim of violent thoughts. No specific plan for self injury. We discuss plan to manage this symptom and settle on titration of Seroquel for today. If this is ineffective, we will likely add a mood stabilizer tomorrow. Patient says that Depakote helped in the past but made him feel tired. He did not like the effect of lithium and would prefer to avoid this agent. No side effects from medications. No acute physical complaints. Vital Signs Temp Pulse Resp BP Pulse Ox 12/04/17 06:24 97.8 F 69 18 100/64 99 12/03/17 18:12 97.5 F L 76 17 137/86 98 Labs reviewed. No new labs. I have instructed nursing staff to obtain urinalysis and postvoid residual ordered yesterday. Review of Systems All other systems reviewed negative except as stated in HPI (Limitation: Poor historian) Mental Status Examination Appearance: Appropriate Consciousness: Alert Orientation: Person, Place (At least) Motor Activity: Normal gait, Other (No motoric abnormalities noted) Speech: Unremarkable Language: Adequate Fund of Knowledge: Inadequate Attention and Concentration: Other (Fair) Memory: Unremarkable (Grossly intact on clinical exam) Mood: Irritable Affect: Blunt, Other (Remains childlike) Thought Process & Associations: Circumstantial Thought Content: Bizarre thinking, Thought blocking Hallucination Type: None Delusion Type: None Suicidal Ideation: Yes Suicidal Plan: No Suicidal Intention: No Homicidal Ideation: Yes Homicidal Plan: No Homicidal Intention: No Insight: Fair (Fair to poor) Judgment: Impulsive Assessment and Plan - Assessment (1) Schizoaffective disorder Code(s): F25.9 - Schizoaffective disorder, unspecified Status: Acute - Plan Plan: Titrate Seroquel to 200 mg 3 times a day. To consider addition of a mood stabilizer. Follow-up urinalysis and postvoid residual. Continue to monitor on high acuity unit. Continue other medications and care as ordered. Justification for Continued Inpatient Stay: Medication changes. High risk for decompensation in less restrictive environment. Discharge Planning: Pending psychiatric stabilization. Possible placement. Request Healthcare Surrogate/Guardian Advocate?: No (1) Schizoaffective disorder Qualifiers: Schizoaffective disorder type: other Qualified Code(s): F25.8 - Other schizoaffective disorders
[2017-12-04] MEDS: Ibuprofen 600 MG Tablet PO SCH ×2 (15:21→20:18)
[2017-12-05] MEDS: buPROPion 150 MG XL 24 HR Tablet PO SCH (08:20)
[2017-12-05] MEDS: Propranolol LA 60 MG Capsule PO SCH ×2 (08:21→20:58)
[2017-12-05] MEDS: Senna/Docusate Sodium 8.6/50 MG Tablet PO SCH ×2 (09:00→20:59)
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
[2017-12-05] MEDS: Ibuprofen 600 MG Tablet PO SCH ×2 (14:17→22:13)
[2017-12-05] MEDS: Divalproex 250 MG DR Tablet PO SCH (20:58)
[2017-12-06] MEDS: Divalproex 250 MG DR Tablet PO SCH ×2 (08:03→21:31)
[2017-12-06] MEDS: Senna/Docusate Sodium 8.6/50 MG Tablet PO SCH ×2 (08:03→21:19)
[2017-12-06] MEDS: Propranolol LA 60 MG Capsule PO SCH ×2 (08:03→21:16)
[2017-12-06] MEDS: buPROPion 150 MG XL 24 HR Tablet PO SCH (08:04)
--- NOTE | 2017-12-06 10:46 | P.PNPSY ---
Subjective Remarks: Patient seen and examined with counselor and nurse. Chart reviewed. Case discussed with nursing staff. Case discussed in treatment team. Counselor notes that patient was irrationally angry with counselor today, flipping off the counselor without provocation. On my examination today, patient says he is feeling "pissed off." He does seem irritable. He tells me "I could use some more Depakote." He also wants to titrate his Wellbutrin to manage complaints of low mood. Patient's outpatient out of school hours care worker had alerted me that patient is due for his Invega Sustenna 234mg IM now. When I discuss administering this medication to patient, he agrees but complains that the Invega is "giving me titties." He then raises his gown, and I do note that he has moderate gynecomastia. He also reports that he is able to express milk from his breasts. No other medication side effects. No physical complaints. Vital Signs Temp Pulse Resp BP Pulse Ox 12/06/17 06:50 97.2 F L 72 16 121/56 L 99 12/05/17 17:33 98.0 F 75 16 133/60 99 Labs reviewed. No new labs. Review of Systems All other systems reviewed negative except as stated in HPI Mental Status Examination Appearance: Appropriate Consciousness: Alert Orientation: Person, Place Motor Activity: Normal gait, Other (No motoric abnormalities noted) Speech: Unremarkable Language: Adequate Fund of Knowledge: Inadequate Attention and Concentration: Other (Fair) Memory: Unremarkable (Grossly intact on clinical exam) Mood: Irritable Affect: Irritable Thought Process & Associations: Intact Thought Content: Bizarre thinking, Thought blocking Hallucination Type: None Delusion Type: None Suicidal Ideation: No Suicidal Plan: No Suicidal Intention: No Homicidal Ideation: Yes Homicidal Plan: No Homicidal Intention: No Insight: Fair (Fair at best) Judgment: Impulsive Assessment and Plan - Assessment (1) Schizoaffective disorder Code(s): F25.9 - Schizoaffective disorder, unspecified Status: Acute - Plan Plan: Hold off on administering Invega Sustenna in light of gynecomastia. I will check PRL level. I would normally switch to Abilify, but patient is intolerant of this medication. I will consult hospitalist for management recommendations regarding gynecomastia. I will titrate Depakote to 500mg BID with plans to check a level beginning of next week. I will additionally titrate Wellbutrin as patient asks to 300mg daily over weekend. Continue to monitor on high acuity unit. Continue other medications and care as ordered. Justification for Continued Inpatient Stay: Medication changes. Monitoring for impairment in safety. High risk for decompensation in less restrictive environment. Discharge Planning: Possible placement Request Healthcare Surrogate/Guardian Advocate?: No (1) Schizoaffective disorder Qualifiers: Schizoaffective disorder type: other Qualified Code(s): F25.8 - Other schizoaffective disorders
[2017-12-06] MEDS: Ibuprofen 600 MG Tablet PO SCH ×2 (13:45→21:19)
[2017-12-06] MEDS ORDERED: buPROPion 150 MG 12 HR Tablet PO SCH (16:00)
[2017-12-06] MEDS ORDERED: Divalproex 250 MG DR Tablet PO SCH (16:00)
[2017-12-06] MEDS: buPROPion 150 MG 12 HR Tablet PO SCH (21:20)
[2017-12-07] MEDS: Propranolol LA 60 MG Capsule PO SCH ×2 (10:27→20:19)
[2017-12-07] MEDS: Ibuprofen 600 MG Tablet PO SCH ×4 (10:27→21:00)
[2017-12-07] MEDS: Senna/Docusate Sodium 8.6/50 MG Tablet PO SCH ×2 (10:27→20:18)
[2017-12-07] MEDS: Divalproex 250 MG DR Tablet PO SCH ×2 (10:27→19:38)
[2017-12-07] MEDS: buPROPion 150 MG 12 HR Tablet PO SCH ×2 (10:28→20:19)
--- NOTE | 2017-12-07 14:45 | P.PNPSY ---
Subjective Chief Complaint: Schizoaffective, unspecified Remarks: Chart reviewed and discussed with nursing staff. Rounded on patient with Yohana NUNES. Patient is sitting in day room watching television. He continues to be quite irritable and agitated. He is refusing to take his Depakote. He states that he does not like Atarax and he wants Ativan. Patient is requesting that his Wellbutrin be moved to a.m. instead of bid. His appetite is sleep is good. He is participating in unit activities. He is unable to verbalize the reason for his anxiety Review of Systems All other systems reviewed negative except as stated in HPI Mental Status Examination Appearance: Appropriate Consciousness: Alert Orientation: Person, Place Motor Activity: Normal gait, Other (No motoric abnormalities noted) Speech: Unremarkable Language: Adequate Fund of Knowledge: Inadequate Attention and Concentration: Other (Fair) Memory: Unremarkable (Grossly intact on clinical exam) Mood: Angry, Irritable Affect: Irritable Thought Process & Associations: Intact Thought Content: Bizarre thinking, Thought blocking Hallucination Type: None Delusion Type: None Suicidal Ideation: No Suicidal Plan: No Suicidal Intention: No Homicidal Ideation: Yes Homicidal Plan: No Homicidal Intention: No Insight: Fair (Fair at best) Judgment: Impulsive Assessment and Plan - Assessment (1) Schizoaffective disorder Code(s): F25.9 - Schizoaffective disorder, unspecified Status: Acute - Plan Plan: Per psychiatrist's note hold off on administering Invega Sustenna in light of gynecomastia as he is checking a PRL level. Patient also endorses an intolerance to Ability. Depakote has been ordered but patient is refusing to take it. He is willing to take he Wellbutrin but wants the administration changed from BID to one dose in the am. Continue to monitor on high acuity unit. Continue other medications and care as ordered. Justification for Continued Inpatient Stay: Patient is at risk for decompensation is moved to a unit with lower acuity . Discharge Planning: Discharge planning in progress. Request Healthcare Surrogate/Guardian Advocate?: No (1) Schizoaffective disorder Qualifiers: Schizoaffective disorder type: other Qualified Code(s): F25.8 - Other schizoaffective disorders
--- NOTE | 2017-12-07 17:24 | P.CON ---
History of Present Illness Service: Hospitalist Consult date: 12/07/17 Requesting Physician: Jono Osborn Reason for Consult: Medical management Primary Care Provider: No Primary Care Physician History of Present Illness: Patient is a 32-year-old male involuntarily brought to the emergency room by Ryann choi on November 30, 2017. No significant past medical history per his report. 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 He does have a psychiatric history significant for schizoaffective disorder. Psychiatry has consulted us due to patient complaint gynecomastia. Patient is seen in his room. He is noted to be somewhat aggressive and confrontational. Male RN is present. Patient is a somewhat disorganized thinker; his primary focus is on what mental health medications he is going to be given. He is concerned about bilateral breast enlargement -he is unsure of exactly how long they have been enlarged but he tells me that he has been on Invega for 4 years. He thinks the breast enlargement started about a year ago. He has not noticed any lumps or masses. Does report occasional clear nipple discharge. He is also concerned about a small cut on his right garcia. He also tells me that he has a lot of heartburn and would like something for it. Denies any chest pain or shortness of breath. Denies any nausea vomiting or diarrhea. Has normal appetite. Review of Systems All other systems reviewed negative except as stated in HPI PMFSH - History History Provided By: Patient, Medical Record - Medical History Medical History: Medical History (Last Reviewed 12/08/17 @ 13:33 by CANDIE Denton) Patient denies medical problems - Surgical History Surgical History: Surgical History (Last Reviewed 12/08/17 @ 13:33 by CANDIE Denton) No history of previous surgery - Family History Family History: Family History (Last Reviewed 12/08/17 @ 13:33 by CANDIE Denton) Other Unknown family medical history - Tobacco History Second Hand Smoke Exposure: Yes Tobacco Use In Past 30 Days: No Smoking Status: Never smoker - Alcohol History How Often Do You Have a Drink Containing Alcohol: Monthly or less - Substance Use History Substance History: Past History - Travel History Recent Travel in the [place] Within the Last 8 Weeks: No Recent Travel Out of the Country Within the Last 8 Weeks: No - Immunization History Tetanus Immunization: Unsure Hx Influenza Vaccine This Season: No Medications and Allergies Active Medications: Active Medications Al Hydrox/Mg Hydrox/Simethicone (Mag-Al Plus Susp Liq) 30 ml PO Q6H PRN PRN Reason: DYSPEPSIA Al Hydroxide/Mg Hydroxide (Milk Of Magnesia Liq) 30 ml PO Q12H PRN PRN Reason: Mild Constipation Bupropion HCl (Wellbutrin Sr) 150 mg PO BID [facility] Last Admin: 12/07/17 10:28 Dose: 150 mg Divalproex Sodium (Depakote Dr) 500 mg PO BID [facility] Last Admin: 12/07/17 10:27 Dose: 500 mg Hydroxyzine HCl (Atarax) 50 mg PO Q6H PRN PRN Reason: ANXIETY Last Admin: 12/06/17 16:56 Dose: 50 mg Miscellaneous (Pill Splitter) 1 each OTHER UNSCH [facility] Propranolol HCl (Inderal La) 60 mg PO BID [facility] Last Admin: 12/07/17 10:27 Dose: 60 mg Quetiapine Fumarate (Seroquel) 200 mg PO BID@09,15 [facility] Last Admin: 12/07/17 15:02 Dose: Not Given Quetiapine Fumarate (Seroquel) 300 mg PO [facility] Last Admin: 12/06/17 21:15 Dose: 300 mg Senna/Docusate Sodium (Magali-Colace) 1 tab PO BID [facility] Last Admin: 12/07/17 10:27 Dose: 1 tab Allergies Allergy/AdvReac Type Severity Reaction Status Date / Time aripiprazole Allergy Intermediate Twitching Verified 10/21/17 18:52 zolpidem AdvReac Mild Verified 10/21/17 18:52 Home Medications Medication Instructions Recorded Confirmed Type Invega Sustenna 200 mg IM 11/30/17 History bupropion HCl [Wellbutrin XL] 150 mg PO QAM 11/30/17 11/30/17 History propranolol [Inderal LA] 15 mg/kg PO BID 11/30/17 11/30/17 History quetiapine [Seroquel] PO HS 11/30/17 History Physical Exam Vital signs: Vital Signs 12/06/17 18:12 12/07/17 06:03 Temperature 98.2 F 97.8 F Pulse Rate 86 79 Respiratory Rate 18 16 Blood Pressure 136/78 115/60 Pulse Oximetry 98 98 Narrative: GENERAL: Well-nourished, well-developed adult male in no obvious distress. Patient does have bilateral breast enlargement. Mild tenderness; no palpable lumps. No skin discoloration. No nipple discharge. No axillary nodes palpable. SKIN: Warm and dry. Small lesion/lac on right garcia ~1.5cm. No drainage. Slightly erythemic but no indication of cellulitis. HEAD: Atraumatic. Normocephalic. CARDIOVASCULAR: Regular rate and rhythm. RESPIRATORY: No accessory muscle use. Clear to auscultation. Breath sounds equal bilaterally. GASTROINTESTINAL: Abdomen soft, non-tender, non-distended. Positive bowel sounds. MUSCULOSKELETAL: Extremities without clubbing, cyanosis, or edema. No obvious deformities. NEUROLOGICAL: Awake and alert. No obvious cranial nerve deficits. Motor grossly within normal limits. Normal speech. PSYCHIATRIC: somewhat aggressive; insight and judgment poor. Assessment and Plan - Assessment (1) Gynecomastia, male Code(s): N62 - Hypertrophy of breast Status: Acute (2) GERD (gastroesophageal reflux disease) Code(s): K21.9 - Gastro-esophageal reflux disease without esophagitis Status: Chronic (3) Skin lesion of right leg Code(s): L98.9 - Disorder of the skin and subcutaneous tissue, unspecified Status: Acute - Plan Patient is a 32-year-old male involuntarily brought to the emergency room by [employer] on November 30, 2017. No significant past medical history per his report. Schizoaffective disorder -Managed by psychiatry-primary Gynecomastia & Hyperlipidemia -Likely secondary to medication. Stop Invega. -Prolactin 35 and LDL 190. Imaging of breast not indicated at this time. Recommend rechecking cholesterol in 4-6 weeks and treating with statin if indicated at that time -patient to follow-up with PCP for this. Acid reflux -Add Protonix Skin lesion -Antibiotic ointment twice daily; keep clean and dry. Open to air. DVT prophylaxis: Patient is ambulatory Discussed with: Patient and nurse Thank you for this consult. We will look forward to medically managing this patient for you. (2) GERD (gastroesophageal reflux disease) Qualifiers: Esophagitis presence: esophagitis presence not specified Qualified Code(s): K21.9 - Gastro-esophageal reflux disease without esophagitis
[2017-12-08] MEDS: Senna/Docusate Sodium 8.6/50 MG Tablet PO SCH ×2 (08:43→20:27)
[2017-12-08] MEDS: Divalproex 250 MG DR Tablet PO SCH ×2 (08:43→19:45)
[2017-12-08] MEDS: Propranolol LA 60 MG Capsule PO SCH ×2 (08:44→20:25)
[2017-12-08] MEDS: buPROPion 150 MG 12 HR Tablet PO SCH ×2 (09:01→20:26)
[2017-12-08] MEDS ORDERED: Pantoprazole Sodium 20 MG DR Tablet PO SCH (13:30)
--- NOTE | 2017-12-08 13:49 | P.PN ---
Subjective Interval history: Patient is seen in [place]. Aide is present. Patient tells me that he is "okay" and that he has no questions at this time but will let me know if he does. He is still unhappy about his mental health medications and is redirected to psychiatry. Denies any chest pain or shortness of breath. Denies any nausea vomiting or diarrhea. continues to have some GERD. Physical Exam Vital signs: Vital Signs 12/07/17 18:00 12/08/17 05:32 Temperature 97.9 F 98.2 F Pulse Rate 89 73 Respiratory Rate 18 18 Blood Pressure 117/59 L 113/61 Pulse Oximetry 98 100 Narrative: GENERAL: Well-nourished, well-developed adult male in no obvious distress. Patient does have bilateral breast enlargement. Mild tenderness; no palpable lumps. No skin discoloration. No nipple discharge. No axillary nodes palpable. SKIN: Warm and dry. Small lesion/lac on right garcia ~1.5cm. No drainage. Slightly erythemic but no indication of cellulitis. Clean and dry. HEAD: Atraumatic. Normocephalic. CARDIOVASCULAR: Regular rate and rhythm. RESPIRATORY: No accessory muscle use. Clear to auscultation. Breath sounds equal bilaterally. GASTROINTESTINAL: Abdomen soft, non-tender, non-distended. Positive bowel sounds. MUSCULOSKELETAL: Extremities without clubbing, cyanosis, or edema. No obvious deformities. NEUROLOGICAL: Awake and alert. No obvious cranial nerve deficits. Motor grossly within normal limits. Normal speech. PSYCHIATRIC: somewhat aggressive; insight and judgment poor. Results - Labs CBC & Chem 7: 11/30/17 10:10 12/02/17 11:15 Assessment and Plan - Assessment (1) Gynecomastia, male Code(s): N62 - Hypertrophy of breast Status: Acute (2) Skin lesion of right leg Code(s): L98.9 - Disorder of the skin and subcutaneous tissue, unspecified Status: Acute - Plan Patient is a 32-year-old male involuntarily brought to the emergency room by [employer] act on November 30, 2017. No significant past medical history per his report. Schizoaffective disorder -Managed by psychiatry-primary Gynecomastia & Hyperlipidemia -Likely secondary to medication. Stop Invega. -Prolactin 35 and LDL 190. Imaging of breast not indicated at this time. Recommend rechecking cholesterol in 4-6 weeks and treating with statin if indicated at that time -patient to follow-up with PCP for this. Skin lesion -Antibiotic ointment twice daily; keep clean and dry. Open to air. -No indication of infection. DVT prophylaxis: Patient is ambulatory Discussed with: Patient and nurse Patient appears medically stable. [place] hospitalist will sign off at this time. Please reconsult if needed.
[2017-12-08] MEDS: Ibuprofen 600 MG Tablet PO SCH (14:08)
--- NOTE | 2017-12-08 16:11 | P.PNPSY ---
Subjective Chief Complaint: Schizoaffective, unspecified Remarks: Reviewed electronic medical records and discussed case with staff. Follow-up was conducted in the day room with advanced practice psychiatric nurse present. His nurse reports that he is easily agitated and refused part of his medication initially this morning but took it later. Patient reports that he slept well but has not had a good of an appetite. He reports that after taking the Seroquel he is now hungry for dinner. He is complaining of "restless leg syndrome" when asked about possible side effects from the medication. He quickly becomes irritable questioning what my role is in the department and seemed to be trying to initiate an argument. Mental Status Examination Appearance: Appropriate Consciousness: Alert Orientation: Person, Place Motor Activity: Normal gait, Other (No motoric abnormalities noted) Speech: Unremarkable Language: Adequate Fund of Knowledge: Inadequate Attention and Concentration: Other (Fair) Memory: Unremarkable (Grossly intact on clinical exam) Mood: Angry, Irritable Affect: Irritable Thought Process & Associations: Intact Thought Content: Bizarre thinking, Thought blocking Hallucination Type: None Delusion Type: None Suicidal Ideation: No Suicidal Plan: No Suicidal Intention: No Homicidal Ideation: Yes Homicidal Plan: No Homicidal Intention: No Insight: Fair (Fair at best) Judgment: Impulsive Assessment and Plan - Assessment (1) Schizoaffective disorder Code(s): F25.9 - Schizoaffective disorder, unspecified Status: Acute - Plan Plan: Patient will be reevaluated tomorrow by the attending psychiatrist. Continue with current treatment plan. Justification for Continued Inpatient Stay: Moving this patient to a less restrictive environment would likely result in decompensation. Patient continues to be labile and irritable. Request Healthcare Surrogate/Guardian Advocate?: No (1) Schizoaffective disorder Qualifiers: Schizoaffective disorder type: other Qualified Code(s): F25.8 - Other schizoaffective disorders
[2017-12-09] MEDS: Ibuprofen 600 MG Tablet PO SCH ×4 (06:48→14:53)
[2017-12-09] MEDS: Divalproex 250 MG DR Tablet PO SCH ×2 (08:12→20:36)
[2017-12-09] MEDS: buPROPion 150 MG 12 HR Tablet PO SCH ×2 (08:12→14:53)
[2017-12-09] MEDS: Propranolol LA 60 MG Capsule PO SCH ×2 (08:13→20:37)
[2017-12-09] MEDS: Senna/Docusate Sodium 8.6/50 MG Tablet PO SCH ×2 (08:13→20:37)
--- NOTE | 2017-12-09 09:24 | P.PNPSY ---
Subjective Chief Complaint: Schizoaffective, unspecified Remarks: Patient seen and examined with nurse. Chart reviewed. Case discussed with nursing staff who reports patient remains edgy and suspicious and occasionally argumentative. On my examination today, the patient tells me that the Seroquel is helping with his anxiety but making him feel too cloudy during the day. He requests that we move the bulk of the dose to nighttime. He remains fairly edgy and irritable. He remains a little bit paranoid. He does not describe any active SI or HI when asked but does say "I still feel a little bit unstable. " Besides cloudy feeling from Seroquel, no other medication side effects. Patient does want his nighttime dose of Wellbutrin moved to the afternoon. No physical complaints. Vital Signs Temp Pulse Resp BP Pulse Ox 12/08/17 16:05 98.1 F 73 18 128/75 99 Laboratory Results - last 48 hr 12/09/17 12/09/17 07:50 07:50 Ammonia 44 H Valproic Acid 43 L Labs reviewed. Depakote level subtherapeutic. Ammonia level somewhat elevated with no evidence of hyperammonemic encephalopathy. Review of Systems All other systems reviewed negative except as stated in HPI Mental Status Examination Appearance: Appropriate Consciousness: Alert Orientation: Person, Place Motor Activity: Normal gait, Other (No abnormal motor movements noted) Speech: Unremarkable Language: Adequate Fund of Knowledge: Inadequate Attention and Concentration: Other (Fair) Memory: Unremarkable (Grossly intact on clinical exam) Mood: Irritable Affect: Irritable Thought Process & Associations: Intact Thought Content: Bizarre thinking, Thought blocking Hallucination Type: None Delusion Type: None Suicidal Ideation: No Suicidal Plan: No Suicidal Intention: No Homicidal Ideation: No (Unreliable to contract for safety) Homicidal Plan: No Homicidal Intention: No Insight: Fair (Fair at best) Judgment: Impulsive Assessment and Plan - Assessment (1) Schizoaffective disorder Code(s): F25.9 - Schizoaffective disorder, unspecified Status: Acute - Plan Plan: Titrate Depakote to 750 mg twice daily to try to bring level into the therapeutic range for mood stabilization. Add Carnitor for hyperammonemia. Plan to check a follow-up Depakote and ammonia level later in the week. Adjust Seroquel dosing to 100/100/[address] the bulk of the dose at night. Adjust Wellbutrin dosing per patient preference. Continue to monitor on the high acuity unit. Continue other medications and care as ordered. Justification for Continued Inpatient Stay: Medication changes. High risk for decompensation in less restrictive environment. Discharge Planning: Counselor continues to work with mother on placement. Request Healthcare Surrogate/Guardian Advocate?: No (1) Schizoaffective disorder Qualifiers: Schizoaffective disorder type: other Qualified Code(s): F25.8 - Other schizoaffective disorders
[2017-12-09] MEDS: QUEtiapine 100 MG Tablet PO SCH ×2 (11:33→16:00)
[2017-12-09] MEDS: levOCARNitine 10% Oral Liq 100 MG/ML 118 ML Bottle PO SCH ×2 (14:52→20:33)
[2017-12-10] MEDS: Senna/Docusate Sodium 8.6/50 MG Tablet PO SCH ×2 (08:44→20:16)
[2017-12-10] MEDS: Divalproex 250 MG DR Tablet PO SCH ×2 (08:44→20:15)
[2017-12-10] MEDS: Propranolol LA 60 MG Capsule PO SCH ×2 (08:44→20:15)
[2017-12-10] MEDS: buPROPion 150 MG 12 HR Tablet PO SCH ×2 (08:54→17:28)
[2017-12-10] MEDS: levOCARNitine 10% Oral Liq 100 MG/ML 118 ML Bottle PO SCH ×3 (08:54→20:18)
--- NOTE | 2017-12-10 10:41 | P.PNPSY ---
Subjective Chief Complaint: Schizoaffective, unspecified Remarks: Patient seen and examined with nurse. Chart reviewed. Case discussed with nursing staff who reports patient has been calm and cooperative. Nursing wonders if patient is not comfortable on the inpatient unit and this may explain his relative lack of progress. Case discussed in treatment team. On my examination today, the patient is calm or in less edgy. He would like to reduce the amount of daytime Seroquel he receives and is agreeable to corresponding titration of the nighttime dose. He says that he would like to be on some Seroquel during the day as he finds it calming, he just wants to decrease the dose. No SI or HI today. No psychotic material. Extensive discussion with patient regarding possible [facility] placement, and he seems receptive to this. No side effects from medications. No physical complaints. Vital Signs Temp Pulse Resp BP Pulse Ox 12/10/17 05:51 97.5 F L 76 17 128/62 12/09/17 16:59 98.7 F 82 18 98 Labs reviewed. No new labs. Review of Systems All other systems reviewed negative except as stated in HPI Mental Status Examination Appearance: Appropriate Consciousness: Alert Orientation: Person, Place Motor Activity: Normal gait, Other (No motor abnormalities noted) Speech: Unremarkable Language: Adequate Fund of Knowledge: Inadequate Attention and Concentration: Other (Fair) Memory: Unremarkable (Grossly intact on clinical exam) Mood: Other (Calm) Affect: Blunt Thought Process & Associations: Intact Thought Content: Appropriate Hallucination Type: None Delusion Type: None Suicidal Ideation: No Homicidal Ideation: No Insight: Fair (Perhaps fair at best) Judgment: Impulsive Assessment and Plan - Assessment (1) Schizoaffective disorder Code(s): F25.9 - Schizoaffective disorder, unspecified Status: Acute - Plan Plan: Adjust Seroquel dosing to 50/50/600 milligrams. Continue other psychotropics as ordered. Depakote and ammonia level ordered for later in the week. Continue to monitor on the inpatient unit. Continue other medications and care as ordered. Justification for Continued Inpatient Stay: Med changes. High risk for decompensation in less restrictive environment. Discharge Planning: Placement, possibly later in the week. Request Healthcare Surrogate/Guardian Advocate?: No (1) Schizoaffective disorder Qualifiers: Schizoaffective disorder type: other Qualified Code(s): F25.8 - Other schizoaffective disorders
[2017-12-10] MEDS: QUEtiapine 100 MG Tablet PO SCH (17:29)
[2017-12-10] MEDS: Ibuprofen 600 MG Tablet PO SCH (17:30)
[2017-12-11] MEDS: Propranolol LA 60 MG Capsule PO SCH ×2 (08:05→20:32)
[2017-12-11] MEDS: Divalproex 250 MG DR Tablet PO SCH ×2 (08:06→20:33)
[2017-12-11] MEDS: QUEtiapine 100 MG Tablet PO SCH ×2 (08:06→14:45)
[2017-12-11] MEDS: buPROPion 150 MG 12 HR Tablet PO SCH ×2 (08:06→14:46)
[2017-12-11] MEDS: levOCARNitine 10% Oral Liq 100 MG/ML 118 ML Bottle PO SCH ×3 (08:07→20:32)
--- NOTE | 2017-12-11 11:16 | P.PNPSY ---
Subjective Chief Complaint: Schizoaffective, unspecified Remarks: Patient seen and examined with nurse. Chart reviewed. Case discussed with nursing staff. Per nursing, patient was verbally abusive to nurse yesterday afternoon with minimal provocation. He has subsequently apologized and has written a large note/card of apology. On my examination today, patient says that he is feeling "temperamental." He is fixated on being concerned about relapse to substance abuse, and this seems to be related to his desire to go to sober living. He can provide no coherent explanation for his outburst yesterday. We discuss triggers for his anger, and patient says that he is prone to outbursts "when people think I am a bad person but I'm not." There is no indication that this trigger applied in interaction with nurse, though. No side effects from medications. No physical complaints. Vital Signs Temp Pulse Resp BP Pulse Ox 12/11/17 05:50 97.8 F 75 17 133/69 99 12/10/17 18:13 97.8 F 74 17 144/74 H 99 Labs reviewed. No new labs. Review of Systems All other systems reviewed negative except as stated in HPI Mental Status Examination Appearance: Appropriate Consciousness: Alert Orientation: Person, Place Motor Activity: Normal gait, Other (No abnormal motor movements noted) Speech: Unremarkable Language: Adequate Fund of Knowledge: Inadequate Attention and Concentration: Other (Fair) Memory: Unremarkable (Remains grossly intact on clinical exam) Mood: Other (Presently calm) Affect: Blunt Thought Process & Associations: Intact Thought Content: Appropriate Hallucination Type: None Delusion Type: None Suicidal Ideation: No Suicidal Plan: No Suicidal Intention: No Homicidal Ideation: No Homicidal Plan: No Homicidal Intention: No Insight: Fair (Perhaps fair at best) Judgment: Impulsive Assessment and Plan - Assessment (1) Schizoaffective disorder Code(s): F25.9 - Schizoaffective disorder, unspecified Status: Acute - Plan Plan: Continue current psychotropics as ordered. Depakote and ammonia level ordered for tomorrow morning. To consider adjustment of this medication based on blood level. Continue to monitor on the inpatient unit. Continue other medications and care as ordered. Justification for Continued Inpatient Stay: High risk for decompensation in less restrictive environment. Discharge Planning: Placement. Counselor relates that patient was declined at [facility], and he is looking into sober living placement, which would be in line with patient's goals , although these do offer less structure. Request Healthcare Surrogate/Guardian Advocate?: No (1) Schizoaffective disorder Qualifiers: Schizoaffective disorder type: other Qualified Code(s): F25.8 - Other schizoaffective disorders
[2017-12-11] MEDS: Ibuprofen 600 MG Tablet PO SCH ×2 (14:44→20:33)
[2017-12-11 15:55] VITALS: O2SAT 98
[2017-12-11] MEDS: Senna/Docusate Sodium 8.6/50 MG Tablet PO SCH (20:33)
[2017-12-12] MEDS: Ibuprofen 600 MG Tablet PO SCH (05:31)
[2017-12-12 06:18] VITALS: BP 142/65; PULSE 75; RESP 16; TEMP 97.7
[2017-12-12] MEDS: Senna/Docusate Sodium 8.6/50 MG Tablet PO SCH (08:47)
[2017-12-12] MEDS: Divalproex 250 MG DR Tablet PO SCH (08:47)
[2017-12-12] MEDS: Propranolol LA 60 MG Capsule PO SCH (08:47)
[2017-12-12] MEDS: QUEtiapine 100 MG Tablet PO SCH (08:50)
[2017-12-12] MEDS: buPROPion 150 MG 12 HR Tablet PO SCH (08:51)
[2017-12-12] MEDS: levOCARNitine 10% Oral Liq 100 MG/ML 118 ML Bottle PO SCH (08:53)
--- NOTE | 2017-12-12 14:53 | P.DSPSY ---
Psychiatry Discharge Summary Inpatient Psychiatric care?: Yes Advance Directives: No Mental Health Advance Directive: No Health Care Proxy: No - Admission Admission Date: November 30, 2017 12:43 - Admission Diagnosis (1) Schizoaffective disorder Code(s): F25.9 - Schizoaffective disorder, unspecified Brief History: Patient is a 32-year-old white male well known to us from multiple prior contacts most recently hospitalized under my service in October of this year from the PICU initially voluntarily complaining of increased anger or irritability focused it is apartment building management also at his mother. No sexual overtones to these accusations. Of interest patient initially placed on the 2600 unit he became angrier there over some personal slight and tore a door off the bedroom. We have in the ED patient was Garzon acted by the CANDIE Rendon dated November 30 at 1240 hrs. to that document reviewed essentially stated schizoaffective disorder presents disorganized stating that his mind is in "agony" he has a long history of schizoaffective schizophrenia type he appears internally stimulated he states she lives in his own apartment and drug addicts and prostitutes of taking over and he has not slept he is scheduled for an Cintron sustain a but does not know if he received the injection. Patient seen on the unit with nurse Sameer, is alert oriented, did remember me from last visit. He is focusing on the anger he has towards the female client business manager of her apartment building also focused somewhat on his mother and other people in the area that he feels are slightly him. He is vague about any auditory hallucinations related to this. He states all he wants out of life is to get a job and have a home and have a woman. There is sexual overtones too much of his focus. At this time he does meet criteria for continued inpatient psychiatric hospitalization I will do first opinion request second opinion they feel he has capacity to sign for his medication. We will continue on his Seroquel 100 mg 3 times daily consider other medications also with him perhaps a mood stabilizer Tobacco Use In Past 30 Days: No How Often Do You Have a Drink Containing Alcohol: Monthly or less Hospital Course: Patient was admitted to a locked, inpatient psychiatric unit. A general medical consultation was obtained. Appropriate precautions were in place throughout patient's hospital stay. Patient was seen and examined on the unit by psychiatry and also visited by counselor. Psychotropic medications were adjusted. There was no evidence of any suicidality or homicidality on the inpatient unit. There was no evidence of self-care deficit. Counselor has endeavored to arrange for placement in assisted living facility without success , and so the patient will go instead to sober living, which is patient's preference. On the day of discharge: Patient seen and examined with counselor and nurse. Chart reviewed. Depakote level within the therapeutic range. Ammonia level remains elevated, and I have titrated the patient's Carnitor on discharge and discussed the matter with the patient. There is no evidence of valproate-induced hyperammonemic encephalopathy on exam today. Case discussed with nursing staff. Patient has not engaged in any physical aggression in the several days prior to discharge and had no issues with this overnight. On my examination today, patient is agreeable to going to sober living. He denies any suicidal or homicidal ideation, intent or plan and contracts for safety. No depressive or hypomanic/manic symptoms. No audiovisual hallucinations. I can elicit no delusional material. No side effects from medications. No physical complaints. Suicide and violence risk assessment on day of discharge both suggest lower imminent risk from mental illness as defined under the Garzon act, and the patient's level of function is adequate for outpatient care. Patient has maximized benefit from this inpatient psychiatric hospital stay. He will be discharged to sober living today with psychiatric follow-up as arranged by counselor. Patient is also to follow up with primary care. I have counseled the patient to return to the psychiatric emergency room for any concerning psychiatric symptoms as part of a general safety plan. With the benefit of observation on the unit it does seem that patient was quite comfortable on the unit and over-reported symptoms at times in service of extending his stay on the unit. Although the patient is agreeable to going to sober living today, I do think it is possible that he may manufacture symptoms or circumstances to facilitate readmission to the inpatient unit in the future. Averting such an occurrence is not a valid reason to retain the patient on the unit today. - Discharge Discharge Date: 12/12/17 - Discharge Diagnosis (1) Schizoaffective disorder Diagnosis: Principal (stabilized) Code(s): F25.9 - Schizoaffective disorder, unspecified Status: Acute Discharge Disposition: Sober living - Discharge Instructions Discharge Diet: Regular Diet Activities You Can Perform: Weight Bearing As Tolerat - Discharge Time <= 30 minutes Mental Status Examination Appearance: Appropriate Consciousness: Alert Orientation: x4 Motor Activity: Normal gait, Other (No motor abnormalities noted) Speech: Unremarkable Language: Adequate Fund of Knowledge: Inadequate Attention and Concentration: Adequate Memory: Unremarkable (Grossly intact on clinical exam) Mood: Appropriate, Other (Calm) Affect: Blunt Thought Process & Associations: Intact Thought Content: Appropriate Hallucination Type: None Delusion Type: None Suicidal Ideation: No Suicidal Plan: No Suicidal Intention: No Homicidal Ideation: No Homicidal Plan: No Homicidal Intention: No Insight: Fair (Perhaps fair) Judgment: Impulsive (Chronic condition) Discharge/Advance Care Plan - Results Vital Signs: Last Vital Signs Temp 97.7 F 12/12/17 06:17 Pulse 75 12/12/17 06:17 Resp 16 12/12/17 06:17 BP 142/65 H 12/12/17 06:17 Pulse Ox 98 12/12/17 06:17 Lab Results: Abnormal Lab Results 12/12/17 12/12/17 06:53 06:53 Ammonia 65 H Valproic Acid 71 Laboratory Results Hemoglobin A1c 5.3 % (4.3-6.0) 12/02/17 11:15 Triglycerides 187 mg/dL (42-150) H 12/02/17 11:15 Cholesterol 256 mg/dL (120-200) H 12/02/17 11:15 LDL Cholesterol, Calc 190 mg/dL (0-99) H 12/02/17 11:15 HDL Cholesterol 28.8 mg/dL (40.0-60.0) L 12/02/17 11:15 TSH 0.505 uIU/mL (0.358-3.740) 11/30/17 10:10 Valproic Acid 71 mcg/mL (50-100) 12/12/17 06:53 Summary of Procedures: None done Pending Results: None - Medications Number of antipsychotic medications at discharge: 1 - Discharge Care Plan Goals to Promote Your Health: * To prevent worsening of your condition and complications * To maintain your health at the optimal level Directions to Meet Your Goals: Take your medications as prescribed Follow your dietary instruction Follow activity as directed Keep your appointments as scheduled Take your immunizations and boosters as scheduled If your symptoms worsen call your PCP, if no PCP go to Urgent Care Center or Emergency Room For 10/12 questions related to your inpatient stay or results of tests pending at discharge, please contact Dr. Jono Osborn MD at Smoking is Dangerous to Your Health. Avoid second hand smoking (1) Schizoaffective disorder Qualifiers: Schizoaffective disorder type: other Qualified Code(s): F25.8 - Other schizoaffective disorders (1) Schizoaffective disorder Qualifiers: Schizoaffective disorder type: other Qualified Code(s): F25.8 - Other schizoaffective disorders
== END 2017-12-12 13:45 | disposition home or self-care (01) ==
LOC: NEPJ 06:57 → NEDA 12:43 → H260 13:25 → H270 17:07
PROVIDERS: ADMIT Psychiatry & Neurology Psychiatry; ATTEND Psychiatry & Neurology Psychiatry